=== PATIENT | female | born 1985 | race Caucasian/White ===

== ENCOUNTER 2017-12-08 09:14 | Emergency (ER) | payer BC, SELFPAY ==
[2017-12-08 09:26] VITALS: BP 105/64; PULSE 96; RESP 18; TEMP 36.5; O2SAT 98; BMI 29.0
--- NOTE | 2017-12-08 09:58 | HMH.EDUTC ---
[facility] [place] Disposition Clinical Impression: Acute bronchitis Qualifiers: Bronchitis organism: other organism Qualified Code(s): J20.8 - Acute bronchitis due to other specified organisms Disposition: Home, Self-Care Condition on Discharge: Good Instructions: Acute Bronchitis Additional Instructions: Increase fluids Tylenol as needed If any symptoms worsen or do not improve return or be seen in the ER Follow-up with Dr. Costello on Saturday sooner if needed Referrals: Jose Krueger MD [Primary Care Provider] - Time of Disposition: 10:18 Medical Decision Making Vital Signs: 12/08/17 09:26 Temperature 97.7 F Temperature Source Oral Pulse Rate [Right Brachial] 96 H Respiratory Rate 18 Blood Pressure [Right Arm] 105/64 Blood Pressure Mean [Right Arm] 77 Blood Pressure Source [Right Arm] Automatic Cuff Blood Pressure Position [Right Arm] Sitting 02 Sat by Pulse Oximetry 98 Oxygen Delivery Method Room Air Orders (Tests/Meds): ED MEDICATIONS Generic Name Dose Route Start Last Admin Trade Name Freq PRN Reason Stop Dose Admin Albuterol Sulfate 2 puffs 12/08/17 10:12 Proventil-Hfa 90mcg/Puff Inhaler IH 01/07/18 10:11 Q6HP PRN Shortness Of Breath Ferrous Sulfate 325 mg 12/09/17 09:00 Ferrous Sulfate 325mg Tablet PO 01/08/18 08:59 DAILY ELYSSA Non-Formulary Medication 1 tab 12/08/17 10:15 Vit Calc,Iron,Folic [Kpn] PO 01/07/18 10:14 QDAY ELYSSA Discontinued Medications Generic Name Dose Route Start Last Admin Trade Name Freq PRN Reason Stop Dose Admin Miscellaneous 1 unit 12/08/17 10:12 Aerochamber/Optihaler MC 12/08/17 10:13 ONCE ONE - Physician Consults Physician Consulted: christian Time: 10:14 Reason -: Pt condition Comment/Response: Talk with Dr. Lin regarding patient's complaints of shortness of breath, congestion. Dr. Lin okayed Zithromax and an albuterol inhaler. Discussed vitals. - Kian Inquiry Pt receiving controlled substance: No Kian was queried for this patient: No [facility] [place] HPI - General Stated complaint: head congestion Time Seen by Provider: 12/08/17 09:59 Mode of Arrival: Ambulatory Source of Information: Patient Limitations: currently 7 months Description of Symptoms (Recalled from Triage Doc. by RN): congestion, cough. reports she has been sick for almost 3 weeks, but has not reported fever or flu like symptoms. HEENT Symptoms (Recalled from RN notes): No Resp Symptoms (Recalled from RN notes): Yes (cough, chest congestion) Skin Symptoms (Recalled from RN notes): No MS Symptoms (Recalled from RN notes): No Functional Status (Recalled from RN notes): na - History of Present Illness Provider Complaint: 32-year-old female presents for chest congestion, cough, nasal congestion, left ear pain, and shortness of breath ?2 weeks. Patient is 7 months Associated symptoms: cough, shortness of breath, weakness Treatments prior to arrival: none - Related Data Home Medications Medication Instructions Recorded Confirmed ferrous sulfate 325 mg (65 mg 325 mg PO DAILY tab 11/25/17 iron) tablet 1 tab PO QDAY 11/25/17 vitamin,calcium,zwpuhose-gzhk-eqjft acid tablet Allergies Allergy/AdvReac Type Severity Reaction Status Date / Time diphenhydramine Allergy Unknown Verified 12/08/17 09:25 [From BRIE] - Worker's Comp Is this a Worker's Comp case?: No Is this an [facility] Worker's Comp?: No Is this a [facility] Worker's Comp?: No [facility] History - *Social History Smoking Status: Never smoker Alcohol Intake: never - Psychiatric History Expresses thoughts of harming self/others: None Suicide Plan Description: No Plan ROS Obtained: Yes All systems reviewed & no additional complaints - Constitutional Constitutional: Reports as per HPI, Reports malaise - Eyes Eyes: Reports as per HPI - ENT Ears, Nose, Mouth, and Throat: Reports as per HPI, Reports nasal con
--- NOTE | 2017-12-08 10:01 | ED_ITS ---
[facility] [place] Disposition Clinical Impression: Acute bronchitis Qualifiers: Bronchitis organism: other organism Qualified Code(s): J20.8 - Acute bronchitis due to other specified organisms Disposition: Home, Self-Care Condition on Discharge: Good Instructions: Acute Bronchitis Additional Instructions: Increase fluids Tylenol as needed If any symptoms worsen or do not improve return or be seen in the ER Follow-up with Dr. Costello on Saturday sooner if needed Referrals: Jose Krueger MD [Primary Care Provider] - Time of Disposition: 10:18 Medical Decision Making Vital Signs: 12/08/17 09:26 Temperature 97.7 F Temperature Source Oral Pulse Rate [Right Brachial] 96 H Respiratory Rate 18 Blood Pressure [Right Arm] 105/64 Blood Pressure Mean [Right Arm] 77 Blood Pressure Source [Right Arm] Automatic Cuff Blood Pressure Position [Right Arm] Sitting 02 Sat by Pulse Oximetry 98 Oxygen Delivery Method Room Air Orders (Tests/Meds): ED MEDICATIONS Generic Name Dose Route Start Last Admin Trade Name Freq PRN Reason Stop Dose Admin Albuterol Sulfate 2 puffs 12/08/17 10:12 Proventil-Hfa 90mcg/Puff Inhaler IH 01/07/18 10:11 Q6HP PRN Shortness Of Breath Ferrous Sulfate 325 mg 12/09/17 09:00 Ferrous Sulfate 325mg Tablet PO 01/08/18 08:59 DAILY ELYSSA Non-Formulary Medication 1 tab 12/08/17 10:15 Vit Calc,Iron,Folic [Kpn] PO 01/07/18 10:14 QDAY ELYSSA Discontinued Medications Generic Name Dose Route Start Last Admin Trade Name Freq PRN Reason Stop Dose Admin Miscellaneous 1 unit 12/08/17 10:12 Aerochamber/Optihaler MC 12/08/17 10:13 ONCE ONE - Physician Consults Physician Consulted: christian Time: 10:14 Reason -: Pt condition Comment/Response: Talk with Dr. Lin regarding patient's complaints of shortness of breath, congestion. Dr. Lin okayed Zithromax and an albuterol inhaler. Discussed vitals. - Kian Inquiry Pt receiving controlled substance: No Kian was queried for this patient: No [facility] [place] HPI - General Stated complaint: head congestion Time Seen by Provider: 12/08/17 09:59 Mode of Arrival: Ambulatory Source of Information: Patient Limitations: currently 7 months Description of Symptoms (Recalled from Triage Doc. by RN): congestion, cough. reports she has been sick for almost 3 weeks, but has not reported fever or flu like symptoms. HEENT Symptoms (Recalled from RN notes): No Resp Symptoms (Recalled from RN notes): Yes (cough, chest congestion) Skin Symptoms (Recalled from RN notes): No MS Symptoms (Recalled from RN notes): No Functional Status (Recalled from RN notes): na - History of Present Illness Provider Complaint: 32-year-old female presents for chest congestion, cough, nasal congestion, left ear pain, and shortness of breath ?2 weeks. Patient is 7 months Associated symptoms: cough, shortness of breath, weakness Treatments prior to arrival: none - Related Data Home Medications Medication Instructions Recorded Confirmed ferrous sulfate 325 mg (65 mg 325 mg PO DAILY tab 11/25/17 iron) tablet 1 tab PO QDAY 11/25/17 vitamin,calcium,oqeafyll-nfgv-bspwz acid tablet
== END 2017-12-08 10:37 | disposition home or self-care (01) ==
PROVIDERS: Emergency Provider Nurse Practitioner Family; Family Provider Internal Medicine Adolescent Medicine; PCP Internal Medicine Adolescent Medicine
DX: J20.8 Acute bronchitis due to other specified organisms (principal); Z3A.28 28 weeks gestation of pregnancy
CPT/HCPCS: 99201

== ENCOUNTER → 2017-12-18 19:00 | Outpatient (CLI) | payer BC, SELFPAY | PROVIDERS: PCP Nurse Practitioner Obstetrics & Gynecology; Visit Provider Nurse Practitioner Obstetrics & Gynecology | DX: Z34.90 Encounter for supervision of normal pregnancy, unspecified, unspecified trimester (principal) | CPT/HCPCS: 86403 ==

== ENCOUNTER 2018-01-01 22:07 | Inpatient (IN) | payer BC, SELFPAY ==
--- NOTE | 2018-01-01 | US_ITS ---
US OB biophysical profile, US OB follow up, US SD Ratio umbilcal artery: Indication: Decreased heart rate ORDERING PHYSICIAN: Bob Durán MD PATIENT AGE: 32 years FINDINGS: The following parameters are obtained: Average ultrasound age is 38 weeks 2 days. Estimated due date by ultrasound is 01/13/2018. There has been adequate progression compared to previous ultrasound of 08/28/2017. Estimated weight is 3495 g. This is 79th percentile BPD: 37 weeks 3 days OFD: OFD HC: 39 weeks 0 days AC: 39 weeks 0 days FL: 37 weeks 4 days heart rate: 97 bpm. HC/AC: 0.96 Cephalic index: 76% FL/BPD: 80% FL/AC: 21% Amniotic fluid index: 9 cm, lower limits of normal Qualitative AFV: 2 breathing movements: 2 Gross body movements: 2 Tone: 2 Biophysical profile score: 8/8 Doppler evaluation of the umbilical artery: SD ratio: 2.0 Resistive index: 0.51 No obvious anomalies evident. There is a nuchal cord. The umbilical cord is around the fetus neck. Placenta: Anterior and grade 2 IMPRESSION: Live intrauterine gestation at 38 weeks 2 days which is in cephalic presentation with adequate progression. All parameters correlate. heart rate is 97 bpm. There is a nuchal cord. movement and respiratory motion noted. Biophysical profile is 8 of 8. Unremarkable Doppler evaluation of the umbilical artery
[2018-01-01 21:40] VITALS: BMI 28.3
[2018-01-01 21:49] LABS: Basophils % 0.1 % (0.1-2.0); Eosinophils # 0.1 K/mm3 (0.0-0.4); Eosinophils % 0.9 % (0.1-12.0); Hematocrit 35.6 % (37.0-47.0); Hemoglobin 11.5 g/dL (12.2-16.2); Lymphocytes # 1.6 K/mm3 (0.7-4.5); Lymphocytes % 17.6 K/mm3 (10-50); Mean Corpuscular HGB Conc 32.4 g/dL (31.8-35.4); Mean Corpuscular Hemoglobin 27.3 pg (27.0-31.2); Mean Corpuscular Volume 84.2 fl (81-99); Mean Platelet Volume 7.3 fl (7.4-10.4); Monocytes # 0.6 K/mm3 (0.1-1.0); Monocytes % 6.1 % (1.7-9.3); Neutrophils % 75.3 % (37.0-80.0); Platelet Count 383 K/mm3 (142-424); Red Blood Count 4.23 M/mm3 (4.20-5.40); Red Cell Distribution Width 13.8 % (11.5-17.5); White Blood Count 9.3 K/mm3 (4.8-10.8)
[2018-01-01 21:51] LABS: Blood Urea Nitrogen 6 mg/dL (7-18); Carbon Dioxide 24 mmol/L (21.0-32.0); Creatinine Clearance Estimated 248 mL/min (0-300); Creatinine,Serum 0.43 mg/dL (0.55-1.02); Estimated Glomerular Filt Rate 169 ml/min (>60); GFR (African American) 205 ML/MIN (>60); Glucose 96 mg/dL (74-106); Potassium 3.4 mmoL/L (3.5-5.1)
[2018-01-01 22:02] LABS: Anion Gap 4.4 mEq/L (5-15); Chloride 103 mmol/L (98-107); Sodium 128 mmol/L (136-145)
--- NOTE | 2018-01-01 22:17 | HMH.ACPN2 ---
Internal Medicine - PN: Subj *Date: 01/01/18 *Time: 22:17 Interval history: She is a 32-year-old 3 para 2 who is 37 and 6 weeks gestational age. She complains of decreased movement. She has a low baseline on her heart rate tracing. Baby's heart rate was right around 100. Ultrasound showed a biophysical profile of 8 out of 8 with good growth. The fluid is marginal with an amniotic fluid index of 8. Since she will be 38 weeks tomorrow we will go ahead and admit her and induce her labor in the morning. I suspect we may have mild heart block. Her cervix is 2 cm 75% -1 Exam Vital signs and Labs for Last 24 Hours: Laboratory Results - last 24 hr 01/01/18 21:30: WBC 9.3, RBC 4.23, Hgb 11.5 L, Hct 35.6 L, MCV 84.2, MCH 27.3, MCHC 32.4, RDW 13.8, Plt Count 383, MPV 7.3 L, Neut % (Auto) 75.3, Lymph % (Auto) 17.6, Calloway % (Auto) 6.1, Eos % (Auto) 0.9, Baso % (Auto) 0.1, Neut # (Auto) 7.0, Lymph # (Auto) 1.6, Calloway # (Auto) 0.6, Eos # (Auto) 0.1, Baso # (Auto) 0.0 01/01/18 21:30: Sodium 128 L, Potassium 3.4 L, Chloride 103, Carbon Dioxide 24, Anion Gap 4.4 L, BUN 6 L, Creatinine 0.43 L, Estimated Creat Clear 248, Estimated GFR 169, Est GFR ( Amer) 205, Glucose 96 I & O for Last 24 hours: Intake & Output 12/30/17 12/31/17 01/01/18 01/02/18 11:59 11:59 11:59 11:59 Weight 186 lb - Constitutional no acute distress Assessment and Plan (1) Abnormal heart rate complicating Current visit: Yes Status: Acute Category: Medical Code(s): O36.8390 - Maternal care for abnormalities of the heart rate or rhythm, unspecified trimester, not applicable or unspecified (2) Oligohydramnios antepartum Current visit: Yes Status: Acute Category: Medical Code(s): O41.00X0 - Oligohydramnios, unspecified trimester, not applicable or unspecified - Assessment and plan all Dx Assessment and Plan for all problems:: We will go ahead and admit her overnight and since she is 38 weeks we will start labor in the morning.
[2018-01-01 23:29] VITALS: BP 112/72; PULSE 78; RESP 17; TEMP 36.7; O2SAT 94; BMI 29.1
--- NOTE | 2018-01-02 08:12 | HMH.LABNOT ---
Labor Note - Subjective: Date: 01/02/18 Time: 08:12 regular contraction Comment:: We have started oxytocin this morning and she is 3 cm 75% -2. I have ruptured her membranes and there was clear fluid. The nonstress test is reactive with a heart rate around 100. - Objective: NST:: Reactive Contractions:: every 2-3 minutes Cervical Dilation:: 3 Effacement:: 75% Station: -2 Membranes: articially ruptured - Fetus: Monitoring?: Yes monitoring type:: Internal Comment:: I inserted an IUPC and scalp clip. - Assessment: Labor progressing?: Yes Cephalopelvic disproportion?: No Patient Problems: All Active Problems Acute bronchitis (Acute) Abnormal heart rate complicating (Acute) Oligohydramnios antepartum (Acute) (Acute) - Plan: Anesthesia for epidural?: No Continue to labor down?: Yes Plan for ?: No Continue to monitor?: Yes Start pushing?: No
--- NOTE | 2018-01-02 10:04 | HMH.LABNOT ---
Labor Note - Subjective: Date: 01/02/18 Time: 10:04 regular contraction - Objective: NST:: Reactive Contractions:: every 2-3 minutes Cervical Dilation:: 6 Effacement:: 100% Station: 0 Membranes: articially ruptured - Fetus: Monitoring?: Yes monitoring type:: Internal Comment:: I changed out her IUPC. - Assessment: Labor progressing?: Yes Cephalopelvic disproportion?: No Patient Problems: All Active Problems Acute bronchitis (Acute) Abnormal heart rate complicating (Acute) Oligohydramnios antepartum (Acute) (Acute) - Plan: Anesthesia for epidural?: Yes Continue to labor down?: Yes Plan for ?: No Continue to monitor?: Yes Start pushing?: No
--- NOTE | 2018-01-02 10:05 | P.PN_ITS ---
[facility] Anesthesia Checklist - Structural Data Admitted From: Inpatient Planned Operative Procedure/s: labor epidural Consent for Planned Operative Procedure(s) Verified: Yes - Airway Assessment C-Spine Mobility Assessed: Yes TMJ Mobility Assessed: Yes Dentition: Good Dentition - Neurological Assessment Level of Consciousness: Awake, Alert - Anesthesia Plan Anesthesia Risk discussed: Yes Anesthesia Plan: Verified ASA Class: II Anesthesia Type: Epidural [facility] Anesthesia HX I have reviewed the patient's past medical history: Yes Laterality Cases: Bilateral: Tonsillectomy Other Surgeries: Yes: Appendectomy, Amputation: No Fractures: No Comment: vag del x 2 w epidurals *Family Hx:: No significant family history
--- NOTE | 2018-01-02 12:19 | HMH.LABNOT ---
Labor Note - Subjective: Date: 01/02/18 Time: 12:20 regular contraction Comment:: She is fully dilated so we will go ahead and start pushing. - Objective: NST:: Reactive Contractions:: every 2-3 minutes Cervical Dilation:: 9-10 Effacement:: 100% Station: +1 Membranes: articially ruptured - Fetus: Monitoring?: Yes monitoring type:: Internal - Assessment: Labor progressing?: Yes Cephalopelvic disproportion?: No Patient Problems: All Active Problems Acute bronchitis (Acute) Abnormal heart rate complicating (Acute) Oligohydramnios antepartum (Acute) (Acute) - Plan: Anesthesia for epidural?: Yes Continue to labor down?: Yes Plan for ?: No Continue to monitor?: Yes Start pushing?: Yes Comment:: She is fully dilated so we will go ahead and start pushing.
--- NOTE | 2018-01-02 12:54 | P.PCN_ITS ---
- Delivery Note Delivery Date:: 01/02/18 Delivery Time:: 12:36 Anesthesia Type: Epidural Was labor medically induced?: Yes Induction method: per pitocin protocol Gestational age (weeks): 38 Infant delivered prior to 39 weeks?: Yes Justification for early elective delivery:: Anomaly Gender: Male at 1 minute: 9 at 5 minutes: 9 AF:: Clear fluid LAC or MLE?: LAC (Second-degree) Delivery Procedure:: She is a 32-year-old 3 para 2 who is 38 weeks gestational age. She was seen on the night prior to delivery and was having decreased movement. It was noted that the baby had a low baseline heart rate in the 90s-100 we did an ultrasound that showed mild oligohydramnios with an amniotic fluid index of 8. The growth is normal. Biophysical profile was normal. SD ratio was normal. Since the baseline was low and it was concerning that the baby had decreased movement we elected to induce her labor at 38 weeks. She was started on IV oxytocin and had her membranes ruptured. Under labor epidural she progressed to full dilation and delivered with the assistance of a vacuum liveborn male child at 12:36 PM in the afternoon of every 2017. The baby had bradycardia into the 70s and 80s and as result of that I elected to place a vacuum in the direct OA position at station +4. Using one gentle pull I was able to easily deliver the head over an intact perineum. On deliver the head there was a loose nuchal cord which was easily reduced. This was followed by the anterior shoulder and the rest of the infant's body atraumatically. The baby was vigorous and cried and I allowed the cord to continue to pulsate for approximately 1 minute. The cord was then doubly clamped and cut. The was then handed off to Dr. Johnson who assigned Apgars of 9 at 1 minute and 9 at 5 minutes. We then obtained cord blood as well as cord pH. The pH is currently pending. Using gentle traction on the cord and countertraction on the fundus I was able to easily deliver the placenta intact at 1239. He had a normal three-vessel cord. She had a second-degree perineal laceration was repaired with 3-0 Vicryl Rapide suture to the superficial tissues and 2-0 Vicryl suture to the deep tissues. She has O Rh- blood, she is rubella immune and was group B Streptococcus negative. She plans to breast-feed. Her [place] leverman is Dr. Johnson. Estimated blood loss was approximately 400 cc. Placental Delivery Description: Spontaneous
[2018-01-02 14:31] LABS: Cord Blood PH 7.28 (7.35-7.45)
[2018-01-02 22:24] VITALS: BP 105/66; PULSE 78; RESP 18
[2018-01-03 07:04] LABS: Hematocrit 34.6 % (37.0-47.0); Hemoglobin 11.2 g/dL (12.2-16.2)
--- NOTE | 2018-01-03 08:07 | HMH.ACPN2 ---
Internal Medicine - PN: Subj *Date: 01/03/18 *Time: 08:07 Interval history: She is doing very well this morning. She is eating and drinking and ambulating. She is breast-feeding. Her lochia is normal. Exam Vital signs and Labs for Last 24 Hours: Temp Pulse Resp BP Pulse Ox 98.1 F 78 18 105/66 94 L 01/01/18 23:29 01/02/18 22:24 01/02/18 22:24 01/02/18 22:24 01/01/18 23:29 Laboratory Results - last 24 hr 01/02/18 12:30: Specimen Source Cancelled, O2 % Cancelled, ABG pH Cancelled, ABG pCO2 Cancelled, ABG pO2 Cancelled, ABG HCO3 Cancelled, ABG Total CO2 Cancelled, ABG O2 Saturation Cancelled, ABG Base Excess Cancelled, Nghia Test Cancelled, Vent Rate Cancelled, Tidal Volume Cancelled, PEEP Cancelled 01/02/18 12:30: Cord ABG pH 7.28 L 01/03/18 06:30: Hgb 11.2 L, Hct 34.6 L I & O for Last 24 hours: Intake & Output 12/31/17 01/01/18 01/02/18 01/03/18 11:59 11:59 11:59 11:59 Weight 186 lb 0.957 oz - Constitutional no acute distress Assessment and Plan (1) Abnormal heart rate complicating Current visit: Yes Status: Acute Category: Medical Code(s): O36.8390 - Maternal care for abnormalities of the heart rate or rhythm, unspecified trimester, not applicable or unspecified (2) Oligohydramnios antepartum Current visit: Yes Status: Acute Category: Medical Code(s): O41.00X0 - Oligohydramnios, unspecified trimester, not applicable or unspecified - Assessment and plan all Dx Assessment and Plan for all problems:: She is doing very well this morning. Her baby is doing well. We will plan to send her home tomorrow.
--- NOTE | 2018-01-04 09:48 | HMH.DCSUM ---
General - General Admission date: 01/01/18 Discharge date: 01/04/18 HPI HPI: She is a 32-year-old 3 para 2 who had persistent bradycardia at 38 weeks. The baby had a heart rate of 90-100. An ultrasound showed a normally formed fetus with good biophysical profile. The fluid was slightly low at 8 the baby had good breathing movements and good SD ratio. Given the fact that the heart rate remained persistently low, we elected to go ahead and deliver her. Objective Vital signs: Temp Pulse Resp BP Pulse Ox 98.1 F 78 18 105/66 94 L 01/01/18 23:29 01/02/18 22:24 01/02/18 22:24 01/02/18 22:24 01/01/18 23:29 no acute distress Hospital Course Hospital Course: She was observed overnight and then started on IV oxytocin. She had her membranes ruptured and under labor epidural progressed to full dilation. She delivered spontaneously a liveborn male child at 12:36 PM in the afternoon of January 02, 2018. The baby weighed 8 lbs. 8 oz. and had Apgars of 9 at 1 minute and 9 at 5 minutes. She has done well and has remained afebrile throughout her hospitalization. She is eating and drinking and ambulating. She is breast-feeding. She has O Rh- blood and receive RhoGam. She was rubella immune and group B streptococcus negative. She is breast-feeding. She is discharged home to follow-up with me in approximately 2 weeks time. She will continue with her vitamins and iron. She will take yxux-ele-kfmltfz analgesics. Results Labs on day of discharge: Labs from last 24 hours 01/03/18 16:12 Rhogam Infusion Rhogam release DS: Diagnosis - Discharge Diagnosis (1) Abnormal heart rate complicating Status: Acute (2) Oligohydramnios antepartum Status: Acute Discharge Plan - Patient Discharge Instructions ACTIVITY: Continue current activity, No heavy lifting DIET: continue same diet - Follow up Plan Disposition: Home, Self-Fdc Medications: Home Medications Medication Instructions Recorded Confirmed Type ferrous sulfate 325 mg (65 mg 325 mg PO DAILY tab 11/25/17 01/02/18 History iron) tablet 1 tab PO DAILY 11/25/17 01/02/18 History vitamin,calcium,drutkcuk-xtnc-lqhrk acid tablet Prescriptions/Medication Reconciliation: Continue vitamin,calcium,osduhbfi-licf-jnfxw acid tablet 1 tab PO DAILY ferrous sulfate 325 mg (65 mg iron) tablet 325 mg PO DAILY tab
--- NOTE | 2018-01-04 09:51 | P.DS_ITS ---
General - General Admission date: 01/01/18 Discharge date: 01/04/18 HPI HPI: She is a 32-year-old 3 para 2 who had persistent bradycardia at 38 weeks. The baby had a heart rate of 90-100. An ultrasound showed a normally formed fetus with good biophysical profile. The fluid was slightly low at 8 the baby had good breathing movements and good SD ratio. Given the fact that the heart rate remained persistently low, we elected to go ahead and deliver her. Objective Vital signs: Temp Pulse Resp BP Pulse Ox 98.1 F 78 18 105/66 94 L 01/01/18 23:29 01/02/18 22:24 01/02/18 22:24 01/02/18 22:24 01/01/18 23:29 no acute distress Hospital Course Hospital Course: She was observed overnight and then started on IV oxytocin. She had her membranes ruptured and under labor epidural progressed to full dilation. She delivered spontaneously a liveborn male child at 12:36 PM in the afternoon of January 02, 2018. The baby weighed 8 lbs. 8 oz. and had Apgars of 9 at 1 minute and 9 at 5 minutes. She has done well and has remained afebrile throughout her hospitalization. She is eating and drinking and ambulating. She is breast- feeding. She has O Rh- blood and receive RhoGam. She was rubella immune and group B streptococcus negative. She is breast-feeding. She is discharged home to follow-up with me in approximately 2 weeks time. She will continue with her vitamins and iron. She will take over-the- counter analgesics. Results Labs on day of discharge: Labs from last 24 hours 01/03/18 16:12 Rhogam Infusion Rhogam release DS: Diagnosis - Discharge Diagnosis (1) Abnormal heart rate complicating Status: Acute (2) Oligohydramnios antepartum Status: Acute Discharge Plan - Patient Discharge Instructions ACTIVITY: Continue current activity, No heavy lifting DIET: continue same diet - Follow up Plan Disposition: Home, Self-Snf Medications: Home Medications Medication Instructions Recorded Confirmed Type ferrous sulfate 325 mg (65 mg 325 mg PO DAILY tab 11/25/17 01/02/18 History iron) tablet 1 tab PO DAILY 11/25/17 01/02/18 History vitamin,calcium,iyfqnuqx-wwov-slgdn acid tablet Prescriptions/Medication Reconciliation: Continue vitamin,calcium,lbbtsple-sfmv-ozodw acid tablet 1 tab PO DAILY ferrous sulfate 325 mg (65 mg iron) tablet 325 mg PO DAILY tab
== END 2018-01-04 10:30 | disposition home or self-care (01) | DRG 775 ==
LOC: OBOUT 22:09
PROVIDERS: Admitting Provider Nurse Practitioner Obstetrics & Gynecology; Family Provider Nurse Anesthetist, Certified Registered; PCP Internal Medicine Adolescent Medicine; Visit Provider Nurse Practitioner Obstetrics & Gynecology
DX: O41.03X0 Oligohydramnios, third trimester, not applicable or unspecified (principal); O36.8130 Decreased fetal movements, third trimester, not applicable or unspecified; O70.1 Second degree perineal laceration during delivery; Z3A.38 38 weeks gestation of pregnancy; Z37.0 Single live birth; O69.81X0 Labor and delivery complicated by cord around neck, without compression, not applicable or unspecified
CPT/HCPCS: 59409; 59025; 76816; 76819; 76820; 80048; 82800; 85014; 85018; 85025; 85461; 86850; 94761; C1758; J2790

== ENCOUNTER → 2019-01-09 10:22 | Outpatient (CLI) | payer BC, SELFPAY ==
--- NOTE | 2019-01-09 10:31 | US_ITS ---
US soft tissue head and neck CLINICAL INDICATION: Left neck mass ITS.REASON: NECK MASS ORDERING PHYSICIAN: Kalee Dalal PATIENT AGE: 33 years Comparison: None FINDINGS: Ultrasound evaluation performed of the nonthyroid soft tissues of the neck. The parotid and submandibular glands have an unremarkable appearance. No dominant adenopathy is evident. Please see thyroid ultrasound for thyroid description. IMPRESSION: Negative nonthyroidal soft tissue examination of the left neck. There are bilateral thyroid nodules which are more prominent on the left. Please see thyroid ultrasound report for further description
--- NOTE | 2019-01-09 10:31 | US_ITS ---
US thyroid HISTORY: Left neck mass ITS.REASON: NECK MASS ORDERING PHYSICIAN: Kalee Dalal PATIENT AGE: 33 years Comparison: None FINDINGS: The right lobe of the thyroid gland is 4.2 x 1.0 x 2.2 cm. There is barely homogeneous echogenicity. A isoechoic nodule is present in the upper pole at 5 mm anteriorly. An additional upper pole isoechoic nodule is noted at 6 mm. A small cyst is present in the lower pole at 2 mm. The left lobe is 5.7 x 2.6 x 3.6 cm. There is a solid appearing 2 x 1.4 x 1.2 cm nodule in the upper pole which is heterogeneous iso to hypoechoic. This is fairly well-circumscribed. There is a large 4.3 x 2 x 2.8 cm solid appearing heterogeneous nodule in the mid polar region with areas of isoechogenicity and hypoechogenicity. This also is fairly well-circumscribed. There is a 1.1 x 0.8 x 0.9 cm solid appearing isoechoic nodule in the lower pole. The 2 larger nodules are hypervascular. IMPRESSION: 1. There are 3 solid nodules of the left lobe of the thyroid gland. The 2 larger nodules are hypervascular measuring 2 and 4 cm. Fine needle aspiration suggested of the 2 dominant solid nodules on the left.
== END ==
PROVIDERS: PCP Nurse Practitioner Family; Visit Provider Nurse Practitioner Family
DX: R22.1 Localized swelling, mass and lump, neck (principal)
CPT/HCPCS: 76536

== ENCOUNTER → 2019-01-28 12:23 | Outpatient (CLI) | payer BC, SELFPAY ==
--- NOTE | 2019-01-28 12:37 | US_ITS ---
FNA w guidance HISTORY: Dominant left thyroid nodule ITS.REASON: 2 THYROID NODULES LT ORDERING PHYSICIAN: Jose Krueger MD PATIENT AGE: 33 years COMPARISON: 01/09/2019 TECHNIQUE: Following obtaining informed consent, using aseptic technique and local anesthesia with buffered lidocaine, fine-needle aspiration was performed of the dominant nodule in the lower pole of the left lobe of the thyroid gland, the nodule of interest using sonographic guidance. 3 passes were made into the nodule with a 25-gauge needle. Specimen was given to cytology. The patient tolerated the procedure well without evidence of immediate complications and left the ultrasound suite in stable condition. CYTOLOGY:Atypical follicular lesion of undetermined significance IMPRESSION: Uneventful ultrasound guided fine needle aspiration of left thyroid nodule showing atypical follicular lesion of undetermined significance
== END ==
PROVIDERS: PCP Internal Medicine Adolescent Medicine; Visit Provider Internal Medicine Adolescent Medicine
DX: E04.1 Nontoxic single thyroid nodule (principal)
CPT/HCPCS: 10005

== ENCOUNTER → 2019-02-26 13:02 | Outpatient (CLI) | payer BC, SELFPAY ==
--- NOTE | 2019-02-26 13:06 | FL_ITS ---
EXAM: Barium swallow/esophagram. INDICATION: Noah been, fever, difficulty swallowing following thyroid surgery. ITS.REASON: choking/fever/post thyroid surgery ORDERING PHYSICIAN: Sylvester Gamble MD PATIENT AGE: 33 years COMPARISON: None TECHNIQUE: In the upright position the patient was observed to swallow barium in both the AP and lateral view. The cervical esophagus was examined under fluoroscopy with images obtained. The patient was then placed prone in the right anterior oblique position and was observed to swallow barium with Valsalva technique . FLUOROSCOPY TIME: 2 minutes and 32 seconds FINDINGS: EXAM is somewhat limited due to patient's inability to swallow and appropriate amount of contrast. Initially a small amount of Gastrografin was given with no evidence of extravasation. This was followed with barium. The patient was unable to swallow an adequate amount of barium however, there is no evidence of esophageal extrinsic mass or deviation. No extravasation apparent. The mid and distal aspect of the esophagus have an unremarkable appearance. IMPRESSION: Essentially negative limited barium swallow
== END ==
PROVIDERS: PCP Internal Medicine Adolescent Medicine; Visit Provider Otolaryngology
DX: R07.0 Pain in throat (principal); R13.10 Dysphagia, unspecified; S16.1XXA Strain of muscle, fascia and tendon at neck level, initial encounter; Z98.890 Other specified postprocedural states
CPT/HCPCS: 74220

== ENCOUNTER → 2019-02-26 13:44 | Outpatient (CLI) | payer BC, SELFPAY ==
[2019-02-26 15:20] LABS: Free T4 (Free Thyroxine) 1.09 ng/dl (0.76-1.46); Thyroid Stimulating Hormone 0.31 uIU/ml (0.358-3.740)
[2019-02-28 18:04] LABS: Calcium, Ionized 5.3 mg/dL (4.5-5.6)
== END ==
PROVIDERS: Visit Provider Otolaryngology
DX: Z98.890 Other specified postprocedural states (principal); R07.0 Pain in throat
CPT/HCPCS: 36415; 82330; 84439; 84443

== ENCOUNTER → 2019-05-11 13:23 | Outpatient (CLI) | payer BC, SELFPAY ==
[2019-05-11 17:38] LABS: Free T4 (Free Thyroxine) 1.06 ng/dl (0.76-1.46); Thyroid Stimulating Hormone 0.32 uIU/ml (0.358-3.740)
== END ==
PROVIDERS: PCP Internal Medicine Adolescent Medicine; Visit Provider Otolaryngology
DX: Z09 Encounter for follow-up examination after completed treatment for conditions other than malignant neoplasm (principal)
CPT/HCPCS: 36415; 84439; 84443

== ENCOUNTER → 2019-10-20 15:32 | Outpatient (POV) | payer BC, SELFPAY | PROVIDERS: Visit Provider Dermatology | DX: Z00.00 Encounter for general adult medical examination without abnormal findings (principal) ==

== ENCOUNTER → 2020-11-29 11:09 | Outpatient (CLI) | payer BC, SELFPAY ==
[2020-11-30 09:14] LABS: Covid-19 Nasal PCR Sendout P&C NEGATIVE
== END ==
PROVIDERS: PCP Internal Medicine Adolescent Medicine; Visit Provider Nurse Practitioner Family
DX: Z11.52 Encounter for screening for COVID-19 (principal)
CPT/HCPCS: U0004

== ENCOUNTER → 2021-03-28 15:59 | Outpatient (POV) | payer BC, SELFPAY | PROVIDERS: Visit Provider Dermatology | DX: Z00.00 Encounter for general adult medical examination without abnormal findings (principal) ==

== ENCOUNTER → 2021-05-23 15:42 | Outpatient (CLI) | payer BC, SELFPAY ==
[2021-05-23 16:20] LABS: Basophils # 0.1 K/mm3 (0-0.2); Basophils % 0.7 % (0.1-2.0); Eosinophils # 0.1 K/mm3 (0.0-0.4); Eosinophils % 0.7 % (0.1-12.0); Hematocrit 36.2 % (37.0-47.0); Hemoglobin 12.1 g/dL (12.2-16.2); Lymphocytes # 1.9 K/mm3 (0.7-4.5); Lymphocytes % 19.3 % (10-50); Mean Corpuscular HGB Conc 33.4 g/dL (31.8-35.4); Mean Corpuscular Hemoglobin 27.6 pg (27.0-31.2); Mean Corpuscular Volume 82.7 fl (81-99); Monocytes # 0.3 K/mm3 (0.1-1.0); Monocytes % 3.4 % (1.7-9.3); Neutrophils # 7.6 K/mm3 (1.8-7.8); Platelet Count 387 K/mm3 (142-424); Red Blood Count 4.38 M/mm3 (4.20-5.40); Red Cell Distribution Width 13.9 % (11.5-17.5)
[2021-05-23 17:03] LABS: Chloride 104 mmol/L (98-107); Potassium 4.5 mmoL/L (3.5-5.1); Sodium 140 mmol/L (136-145)
[2021-05-23 17:05] LABS: Blood Urea Nitrogen 13 mg/dl (7-17); Estimated Glomerular Filt Rate 95 ml/min (>60); GFR (African American) 115 ML/MIN (>60)
[2021-05-23 17:06] LABS: Alanine Aminotransferase 33 U/L (12-78); Albumin Level 4.5 g/dl (3.5-5.0); Albumin/Globulin Ratio 1.7 (1.1-1.8); Alkaline Phosphatase 69 U/L (38-126); Anion Gap 12.5 mEq/L (5-15); Aspartate Amino Transferase 26 U/L (14-36); Bilirubin,Total 0.3 mg/dl (0.2-1.3); Calcium 9.5 mg/dl (8.4-10.2); Carbon Dioxide 28 mmol/L (22.0-30.0); Globulin 2.6 g/dL (1.3-3.2); Glucose 86 mg/dl (74-100); Total Protein,Serum 7.1 g/dl (6.3-8.2)
[2021-05-23 17:22] LABS: Free Thyroxine Index 3.1 ug/dL (5.93-13.13); T4 (Thyroxine) 9.9 ug/dl (5.53-11.0); Triiodothryronine (T3) Uptake 31 % (23.5-40.5)
[2021-05-23 17:36] LABS: Thyroid Stimulating Hormone 0.36 uIU/mL (0.465-4.68)
== END ==
PROVIDERS: Visit Provider Internal Medicine Adolescent Medicine
DX: E89.0 Postprocedural hypothyroidism (principal)
CPT/HCPCS: 36415; 80053; 84436; 84443; 84479; 85025

== ENCOUNTER 2021-08-16 17:45 | Emergency (ER) | payer BC, SELFPAY ==
[2021-08-16 17:56] VITALS: BP 137/87; PULSE 105; RESP 20; TEMP 37.2; O2SAT 98; BMI 27.2
--- NOTE | 2021-08-16 18:55 | HMH.EDUTC ---
[facility] Disposition Clinical Impression: Exposure to COVID-19 virus Acute bronchitis Qualifiers: Bronchitis organism: unspecified organism Qualified Code(s): J20.9 - Acute bronchitis, unspecified Disposition: Home, Self-Care Condition on Discharge: Good Instructions: DI for Acute Bronchitis, DI for COVID-19 (Suspected or Confirmed ), Preventing the Spread of Coronavirus Discharge Instructions Additional Instructions: Drink plenty of fluids. Take tylenol or ibuprofen for pain or fever. Take the medications as directed. Follow up with your regular doctor. GO TO THE ER FOR ANY WORSENING SYMPTOMS Quarantine until you know the results of your covid-19 test. If it is positive, the health department should call you and give you further instructions about your length of Quarantine and other things. Notify your school or workplace of your results and follow their instructions regarding return to work/school. The cough medication (promethazine dm) will make you drowsy, so don't drive or operate heavy machinery after taking it. Prescriptions: Promethazine/Dextromethorphan [Promethazine-Dm Syrup] 5 ml PO Q6HP PRN #240 ml PRN Reason: Cough Transmission Status: Received by [facility] # methylPREDNISolone [Medrol] 4 mg PO DIRECTED 6 Days #21 packet Transmission Status: Received by [facility] # Azithromycin [Z-Edi 250mg Tab*] 250 mg PO UD DOSE PK #6 tab Transmission Status: Received by [facility] # Referrals: Jose Krueger MD [Primary Care Provider] - Forms: Work/School Release Time of Disposition: 18:58 Medical Decision Making - Medical Records Medical records reviewed: No: I reviewed the patient's medical records. - Kian Inquiry Pt receiving controlled substance: No Vital Signs: 08/16/21 17:56 08/16/21 19:23 Temperature 98.9 F 98 F Temperature Source Oral Oral Pulse Rate 78 Pulse Rate [Radial] 105 H Respiratory Rate 20 15 Blood Pressure 124/74 Blood Pressure [Right Arm] 137/87 Blood Pressure Mean [Right Arm] 103 Blood Pressure Position Sitting Blood Pressure Position [Right Arm] Sitting 02 Sat by Pulse Oximetry 98 Oxygen Delivery Method Room Air Room Air - Lab Data Lab results reviewed: Yes: I reviewed the patient's lab results. Lab Results 08/16/21 18:32: Strep Scn Rapid Clinic Negative 08/16/21 19:02: Chlamy pneumoniae PCR Not detected, Adenovirus (PCR) Not detected, B. pertussis DNA (PCR) Not detected, Coronavirus OC43 (PCR) Not detected, Coronavirus HKU1 (PCR) Not detected, Coronavirus 229E (PCR) Not detected, SARS-CoV-2 (PCR) Not detected, Coronavirus NL63 (PCR) Not detected, Human Metapneumovir PCR Not detected, Influenza A (H1) PCR Not detected, Influ A (H1N1/09) PCR Not detected, Influenza A (H3) PCR Not detected, Influenza Type A (PCR) Not detected, Influenza Type B (PCR) Not detected, M. pneumoniae (PCR) Not detected, Parainfluenza 1 (PCR) Not detected, Parainfluenza 2 (PCR) Not detected, Parainfluenza 3 (PCR) Not detected, Parainfluenza 4 (PCR) Not detected, RSV (PCR) Not detected, Entero/Rhino (PCR) Not detected Orders (Tests/Meds): ORDERS Category Date Time Status Strep Screen Confirmation Stat Micro 08/16/21 18:32 Received [facility] HPI - General Stated complaint: cough,and Ears Time Seen by Provider: 08/16/21 18:30 Mode of Arrival: Ambulatory Source of Information: Patient Limitations: No Limitations Description of Symptoms (Recalled from Triage Doc. by RN): cough, congestion, sinus and divine ear pain x 3 days HEENT Symptoms (Recalled from RN notes): No Resp Symptoms (Recalled from RN notes): Yes Skin Symptoms (Recalled from RN notes): No MS Symptoms (Recalled from RN notes): No Functional Status (Recalled from RN notes): na - History of Present Illness Provider Complaint: She states that she has been sick for the past 4 days. 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 But, she m[place]overn
[2021-08-16 19:01] LABS: UTC Strep Screen (Rapid) Negative (Negative)
[2021-08-16 19:13] LABS: Adenovirus,PCR Not Detected (NotDetected); Bordetella Pertussis Not Detected (NotDetected); Chlamydophila Pneumoniae, PCR Not Detected (NotDetected); Coronavirus 19, PCR Not Detected (NotDetected); Coronavirus 229E Not Detected (NotDetected); Coronavirus NL63 Not Detected (NotDetected); Coronavirus OC43 Not Detected (NotDetected); Coronovirus HKU1,PCR Not Detected (NotDetected); Human Metapneumovirus Not Detected (NotDetected); Influenza A, PCR Not Detected (NotDetected); Influenza AH1, 2009 Not Detected (NotDetected); Influenza AH1, PCR Not Detected (NotDetected); Influenza AH3,PCR Not Detected (NotDetected); Influenza B, PCR Not Detected (NotDetected); Mycoplasma Pneumoniae, PCR Not Detected (NotDetected); Parainfluenza 1, PCR Not Detected (NotDetected); Parainfluenza 2, PCR Not Detected (NotDetected); Parainfluenza 3, PCR Not Detected (NotDetected); Parainfluenza 4, PCR Not Detected (NotDetected); Respiratory Syncytial Virus Not Detected (NotDetected); Rhinovirus/Enterovirus Not Detected (NotDetected)
[2021-08-16 19:23] VITALS: BP 124/74; PULSE 78; RESP 15; TEMP 36.6; O2SAT 98
== END 2021-08-16 19:25 | disposition home or self-care (01) ==
PROVIDERS: Emergency Provider Nurse Practitioner Family; PCP Internal Medicine Adolescent Medicine
DX: J20.9 Acute bronchitis, unspecified (principal); Z20.822 Contact with and (suspected) exposure to COVID-19; F41.8 Other specified anxiety disorders
CPT/HCPCS: 87581; 87632; 87798; 87880; 99202; C9803; G0463; U0003; U0005

== ENCOUNTER → 2021-08-24 15:14 | Outpatient (CLI) | payer BC, SELFPAY ==
[2021-08-24 17:05] LABS: Thyroid Stimulating Hormone 0.67 uIU/mL (0.465-4.68)
== END ==
PROVIDERS: Visit Provider Internal Medicine Adolescent Medicine
DX: E89.0 Postprocedural hypothyroidism (principal)
CPT/HCPCS: 36415; 84443

== ENCOUNTER 2022-01-20 17:45 | Emergency (ER) | payer BC, SELFPAY ==
[2022-01-20 17:50] VITALS: BP 115/75; PULSE 84; RESP 19; TEMP 37.3; O2SAT 97; BMI 24.9
--- NOTE | 2022-01-20 18:12 | HMH.EDUTC ---
[facility] [place] Clinical Impression: Otitis media Qualifiers: Otitis media type: suppurative Chronicity: acute Laterality: left Recurrence: non-recurrent Spontaneous tympanic membrane rupture: without spontaneous rupture Qualified Code(s): H66.002 - Acute suppurative otitis media without spontaneous rupture of ear drum, left ear Acute maxillary sinusitis Qualifiers: Recurrence: non-recurrent Qualified Code(s): J01.00 - Acute maxillary sinusitis, unspecified Disposition: Home, Self-Care Condition on Discharge: Good Instructions: DI for Sinusitis, Middle Ear Infection Additional Instructions: Start antibiotic patient to take as ordered for a full length of time even if you feel better. Sinus infections do not get better overnight. It may take 2-3 days to notice much improvement so be sure to use conservative measures as discussed for symptoms. Flonase 1 spray each nostril daily to help with nasal congestion, sinus and ear pressure/information Increase fluids Humidifier/vaporizer as needed Tylenol and ibuprofen as needed for fever or pain. If symptoms do not improve or get worse return or be seen in the ER Follow-up with primary care this week Prescriptions: cephALEXin [Cephalexin 500mg Tab] 500 mg PO BID 7 Days #14 tab Prescription Printed Fluticasone Propionate [Flonase 50mcg nasal spray 16gm] 1 spr NS DAILY 14 Days #9.9 ml Prescription Printed Referrals: Jose Krueger MD [Primary Care Provider] - Time of Disposition: 18:16 Medical Decision Making - Kian Inquiry Pt receiving controlled substance: No Vital Signs: 01/20/22 17:50 Temperature 99.2 F Temperature Source Oral Pulse Rate [Right Brachial] 84 Respiratory Rate 19 Blood Pressure [Right Arm] 115/75 Blood Pressure Mean [Right Arm] 88 Blood Pressure Source [Right Arm] Automatic Cuff Blood Pressure Position [Right Arm] Sitting 02 Sat by Pulse Oximetry 97 Oxygen Delivery Method Room Air [facility] [place] - General Chief complaint: Urgent [facility] Stated complaint: sinus infection head congestion Time Seen by Provider: 01/20/22 18:12 Mode of Arrival: Ambulatory Source of Information: Patient Limitations: No Limitations Description of Symptoms (Recalled from Triage Doc. by RN): PATIENT C/O SORE THROAT, BIALTERAL EAR PAIN, AND SINUS PRESSURE X 3 DAYS HEENT Symptoms (Recalled from RN notes): Yes Resp Symptoms (Recalled from RN notes): No Skin Symptoms (Recalled from RN notes): No MS Symptoms (Recalled from RN notes): No Functional Status (Recalled from RN notes): WNL - Related Data Home Medications Medication Instructions Recorded Confirmed levothyroxine 88 mcg tablet 88 mcg PO DAILY tab 12/11/21 01/20/22 Previous Rx's Medication Instructions Recorded Fluticasone Propionate [Flonase 1 spr NS DAILY 14 Days #9.9 ml 01/20/22 50mcg nasal spray 16gm] cephALEXin [Cephalexin 500mg Tab] 500 mg PO BID 7 Days #14 tab 01/20/22 Allergies Allergy/AdvReac Type Severity Reaction Status Date / Time diphenhydramine Allergy Unknown Verified 12/11/21 15:51 [From BENADRYL] - Worker's Comp Is this a Worker's Comp case?: No [facility] History - Hepatitis A Screen Drug use history?: No High risk sexual behaviors?: No History of sexually transmitted infection?: No Currently employed?: No Childcare worker?: No Do you have indoor plumbing?: Yes Do you have electricity?: Yes Attestation statement:: This patient has been screened for Hepatitis A risk factors. I have reviewed the patient's past medical history: Yes Medical History: Denies:: Anxiety, Asthma, Cancer, Depression, Diabetes Mellitus Type 1, Diabetes Mellitus Type 2, Hypertension, MRSA, Seizures Other Medical History: Denies: Blood Transfusion Reaction Laterality Cases: Bilateral: Tonsillectomy Other Surgeries: Yes: Appendectomy, , Thyroidectomy, Tubal Ligation Amputation: No Fractures: No Comment: vag del x 2 w epidurals - Social History Smoking Status
[2022-01-20 18:18] VITALS: BP 115/75; PULSE 84; RESP 19; TEMP 37.3; O2SAT 97
[2022-01-20 18:22] LABS: UTC Strep Screen (Rapid) Negative (Negative)
== END 2022-01-20 18:22 | disposition home or self-care (01) ==
PROVIDERS: Emergency Provider Nurse Practitioner Family; PCP Internal Medicine Adolescent Medicine
DX: H66.002 Acute suppurative otitis media without spontaneous rupture of ear drum, left ear (principal); J01.00 Acute maxillary sinusitis, unspecified; J02.9 Acute pharyngitis, unspecified; F32.A Depression, unspecified; F41.9 Anxiety disorder, unspecified; Z79.51 Long term (current) use of inhaled steroids; Z79.899 Other long term (current) drug therapy
CPT/HCPCS: 87880; 99213; G0463

== ENCOUNTER 2023-06-09 07:58 | Emergency (ER) | payer BC, SELFPAY ==
[2023-06-09 08:10] VITALS: BP 118/78; PULSE 78; RESP 19; TEMP 36.8; O2SAT 98; BMI 29.5
[2023-06-09 08:23] LABS: Microscopic, Urine URINE MICROSCOPIC (MICROSCOPIC)
[2023-06-09 08:37] LABS: Appearance,Urine CLEAR (Clear); Bilirubin,Urine Negative (Negative); Blood, Urine 3+ (Negative); Color,Urine YELLOW (Yellow); Glucose,Urine (UA) Negative (Negative); Ketones,Urine Negative (Negative); Leukocyte Esterase,Urine 2+ (Negative); Nitrate,Urine Negative (Negative); PH,Urine 5.5 (5.0-8.5); Protein,Urine 2+ (Negative); Specific Gravity, Urine >= 1.030 (1.005-1.030); Urobilinogen,Urine 0.2 EU/dl (0.2)
--- NOTE | 2023-06-09 08:40 | EXP.UTC ---
Discharge Plan Disposition Patient Disposition: Home, Self-Care Condition: Good Prescriptions Prescriptions: New cefdinir 300 mg capsule 300 mg PO BID Qty: 20 0RF phenazopyridine [Pyridium] 200 mg tablet 200 mg PO Q8H 2 Days Qty: 6 0RF No Action levothyroxine 88 mcg tablet 88 mcg PO DAILY Patient Comments: TAKE 1 CAPSULE BY MOUTH EVERY DAY Referrals Follow up/Referrals: Jose Krueger MD [Primary Care Provider] - See instructions Activity Restrictions/Add. Instructions Additional Instructions/Restrictions: *Increase fluids. Water not Soda or Tea *Start antibiotic immediately and be sure to take as ordered for the FULL length of time although you should start to see improvement over the next 48 hours *Pyridium as needed Remember this medication will turn your urine . This is normal but it will stain what ever it gets on *You should not use Pyridium for more than 48 hours. If so , follow up with your primary physician to review urine culture and ensure that antibiotic is adequate for infection *Be SURE to follow up anytime for new or worsening symptoms with your family doctor. AND in 48 hours for urine culture results with your family doctor, if you do not have a doctor then you may call back to the [facility] for urine culture results and further treatment. We do recommend that you choose and establish care with a Primary Care Physician. ?AND follow up with them ?in 10-14 days to repeat UA to ensure infection is resolved and blood no longer present *Be sure to let your PCP know that we sent urine cultures from the [facility] so they can follow up to ensure that you area the on the correct antibiotic Call your doctor office and make appointment for 48 hours (2 days from today) ?to follow up and get the results of your urine culture and further treatment Clinical Impressions Clinical Impression: UTI (urinary tract infection) Qualifiers: Urinary tract infection type: site unspecified Hematuria presence: with hematuria Qualified Code(s): N39.0 - Urinary tract infection, site not specified Instructions Patient Instructions: Urinary Tract Infection, DI for Urinary Tract Infection (UTI) Discharge ED Provider: Sarina Engel [facility] – [place] HPI General Stated complaint: possible UTI Mode of Arrival: Ambulatory Source of Information: Patient Limitations: No Limitations Time Seen by Provider: 06/09/23 08:40 Description of Symptoms (Recalled from Triage Doc. by RN): PATIENT C/O LOWER BACK PAIN X 2 DAYS HEENT Symptoms (Recalled from RN notes): No Resp Symptoms (Recalled from RN notes): No Skin Symptoms (Recalled from RN notes): No MS Symptoms (Recalled from RN notes): Yes Functional Status (Recalled from RN notes): WNL History of Present Illness Provider Complaint: Patient states that she thinks she may have a UTI States that she [place] and she has been having low back pain, urinary urgency and frequency States that this morning she was still having symptoms so she came in to get checked Related Data Home Medications Medication Instructions Recorded Confirmed levothyroxine 88 mcg tablet 88 mcg PO DAILY THYROID 12/11/21 06/09/23 Previous Rx's Medication Instructions Recorded cefdinir 300 mg capsule 300 mg PO BID #20 caps 06/09/23 phenazopyridine 200 mg tablet 200 mg PO Q8H pain 2 days #6 tabs 06/09/23 (Pyridium) Allergies Allergy/AdvReac Type Severity Reaction Status Date / Time diphenhydramine Allergy Unknown Verified 12/11/21 15:51 [From BENADRYL] Worker's Comp Is this a Worker's Comp case?: No [facility] Disclaimer: The information contained in this section may have been updated after the patient was seen, as this information can be updated by other users. Medical History (Updated 06/09/23 @ 08:48 by Sarina Engel APRN) Hypothyroid Surgical History (Updated 06/09/23 @ 08:27 by Felicitas Turner RN) History of appendectomy History of section
[2023-06-09 08:50] VITALS: BP 118/78; PULSE 78; RESP 19; TEMP 36.8; O2SAT 98
[2023-06-09 08:50] LABS: Bacteria,Urine 1+ /lpf; Squamous Epithelial Cell,Urine Occasional #/hpf (0-5)
== END 2023-06-09 08:52 | disposition home or self-care (01) ==
PROVIDERS: Emergency Provider Nurse Practitioner; PCP Internal Medicine Adolescent Medicine
DX: N39.0 Urinary tract infection, site not specified (principal); B96.89 Other specified bacterial agents as the cause of diseases classified elsewhere; M54.59 Other low back pain; E03.9 Hypothyroidism, unspecified
CPT/HCPCS: 81001; 87086; 87088; 87186; 99212; 99214; G0463

== ENCOUNTER 2023-10-20 02:53 | Emergency (ER) | payer BC, SELFPAY ==
--- NOTE | 2023-10-20 02:51 | ECG_ITS ---
APPROVED REPORT Exam: Resting ECG HR:64 bpm ECG Measurements Heart Rate [address] 153 P 60 QRSd 118 QRS 80 QT 404 T 52 QTc 414 Conclusion SINUS RHYTHM INCOMPLETE RIGHT BUNDLE BRANCH BLOCK [90+ ms QRS DURATION, TERMINAL R IN V1/V2, 40+ ms S IN I/aVL/V4/V5/V6] BORDERLINE ECG UNCONFIRMED REPORT Electronically signed by : Jose Krueger MD 10/21/2023 17:40:03
[2023-10-20 02:54] VITALS: BP 133/83; PULSE 68; RESP 20; TEMP 36.8; O2SAT 97; BMI 26.6
[2023-10-20 03:04] VITALS: PULSE 68
[2023-10-20 03:30] VITALS: PULSE 76; RESP 14
--- NOTE | 2023-10-20 03:51 | XR_ITS ---
PROCEDURE INFORMATION: Exam: XR Chest Exam date and time: 10/20/2023 4:17 AM Age: 38 years old Clinical indication: Pain; Chest pressure; Additional info: Chest pain TECHNIQUE: Imaging protocol: Radiologic exam of the chest. Views: 2 views. COMPARISON: CT ABDOMEN PELVIS WO CON 11/12/2019 11:42 AM FINDINGS: Lungs: Unremarkable. No consolidation. Pleural spaces: Unremarkable. No pleural effusion. No pneumothorax. Heart/Mediastinum: Unremarkable. No cardiomegaly. Bones/joints: Unremarkable. IMPRESSION: No acute process noted.
[2023-10-20 04:00] VITALS: PULSE 72; RESP 14
[2023-10-20 04:00] LABS: Chloride 105 mmol/L (98-107)
[2023-10-20 04:01] LABS: Potassium 4.1 mmoL/L (3.5-5.1); Sodium 138 mmol/L (136-145)
[2023-10-20 04:02] LABS: Basophils % 0.4 % (0.1-2.0); Eosinophils # 0.1 K/mm3 (0.0-0.4); Eosinophils % 0.5 % (0.1-12.0); Hematocrit 38.2 % (37.0-47.0); Hemoglobin 12.5 g/dL (12.2-16.2); Lymphocytes # 1.5 K/mm3 (0.7-4.5); Lymphocytes % 17.2 % (10-50); Mean Corpuscular HGB Conc 32.7 g/dL (31.8-35.4); Mean Corpuscular Hemoglobin 27.8 pg (27.0-31.2); Monocytes # 0.3 K/mm3 (0.1-1.0); Monocytes % 3.2 % (1.7-9.3); Neutrophils % 78.5 % (37.0-80.0); Platelet Count 351 K/mm3 (142-424); Red Cell Distribution Width 13.9 % (11.5-17.5); White Blood Count 8.9 K/mm3 (4.8-10.8)
[2023-10-20 04:03] LABS: Alanine Aminotransferase 46 U/L (12-78); Albumin Level 4.4 g/dl (3.5-5.0); Alkaline Phosphatase 73 U/L (38-126); Aspartate Amino Transferase 113 U/L (14-36); Bilirubin,Total 0.4 mg/dl (0.2-1.3); Blood Urea Nitrogen 12 mg/dl (7-17); Creatinine Clearance Estimated 153 mL/min (50-200); Estimated Glomerular Filt Rate 111 ml/min (>60); GFR (African American) 135 ML/MIN (>60)
[2023-10-20 04:04] LABS: Albumin/Globulin Ratio 1.6 (1.1-1.8); Anion Gap 10.1 mEq/L (5-15); Carbon Dioxide 27 mmol/L (22.0-30.0); Globulin 2.7 g/dL (1.3-3.2); Glucose 139 mg/dl (74-100); HCG Qualitative, Serum Negative (Negative); Total Protein,Serum 7.1 g/dl (6.3-8.2)
--- NOTE | 2023-10-20 04:10 | PC.NURSE ---
Pt provided blanket, medicated, updated on status, no other needs at this time
[2023-10-20 04:21] LABS: Troponin I < 0.01 ng/ml (0.00-0.034)
[2023-10-20 05:59] LABS: Troponin I < 0.01 ng/ml (0.00-0.034)
--- NOTE | 2023-10-20 06:29 | HMH.EDCP ---
Discharge Plan Disposition Patient Disposition: Home, Self-Care Condition: Good Chief Complaint: Chest Pain Prescriptions Prescriptions: No Action levothyroxine 88 mcg tablet 88 mcg PO DAILY Patient Comments: TAKE 1 CAPSULE BY MOUTH EVERY DAY cefdinir 300 mg capsule 300 mg PO BID Qty: 20 0RF phenazopyridine [Pyridium] 200 mg tablet 200 mg PO Q8H 2 Days Qty: 6 0RF Referrals Follow up/Referrals: Provider,Referral, MD [Primary Care Provider] - See instructions Activity Restrictions/Add. Instructions Additional Instructions/Restrictions: Follow-up with primary care within the next 3 to 4 days. Return to the emergency department if worsening. Clinical Impressions Clinical Impression: Acute chest wall pain Instructions Patient Instructions: DI for Atypical Chest Pain Discharge ED Provider: Zuleika Drummond General Chief Complaint: Chest Pain Stated Complaint: chest pain Time Seen by Provider: 10/20/23 03:42 Mode of Arrival: Ambulatory Source of Information: Patient Limitations: No Limitations Description of Symptoms (Recalled from ER Triage Doc. by RN): pt reports had some tingling in left side of neck today, now having midsternal CP, reports nausea, tried to take tums but no help History of Present Illness HPI narrative: Ms. Medina is a 38-year-old female, previously healthy presenting with chest pain. Patient has had gradually progressing midsternal chest pain since yesterday evening that has now been persistent so she presented to the emergency department. She has never had chest pain like this before. It worsens with palpation of her anterior chest and is not alleviated by anything. No cough, shortness of breath, fever, or other concerns. No limb swelling, pain, or other concerns. Related Data Home Medications Medication Instructions Recorded Confirmed levothyroxine 88 mcg tablet 88 mcg PO DAILY THYROID 12/11/21 06/09/23 Previous Rx's Medication Instructions Recorded cefdinir 300 mg capsule 300 mg PO BID #20 caps 06/09/23 phenazopyridine 200 mg tablet 200 mg PO Q8H pain 2 days #6 tabs 06/09/23 (Pyridium) Allergies Allergy/AdvReac Type Severity Reaction Status Date / Time diphenhydramine Allergy Unknown Verified 12/11/21 15:51 [From BENADRYL] [facility] Disclaimer: The information contained in this section may have been updated after the patient was seen, as this information can be updated by other users. Medical History Hypothyroid Surgical History History of appendectomy History of section History of tonsillectomy History of tubal ligation History of tympanostomy tube placement Social History Smoking Status: Never smoker alcohol intake: never substance use type: denies use current occupational status: employed Travel in the last 8 weeks: None household members: family housing: house current occupation: teacher current occupational exposures/hazards: No ROS Obtained: Yes All systems reviewed & no additional complaints except as documented Physical Exam General General appearance: alert and in no apparent distress Head Head exam: atraumatic, normocephalic and normal inspection Eye Eye exam: Present normal appearance, PERRL and EOMI ENT ENT exam: Present normal exam, normal oropharynx, mucous membranes moist, TM's normal bilaterally and normal external ear exam Neck Neck exam: Present normal inspection, full ROM and trachea midline; Absent meningismus or lymphadenopathy Chest Chest inspection: Present normal inspection, symmetric chest wall rise and tenderness (Significant tenderness to palpation of the anterior chest) Respiratory Respiratory exam: Present normal lung sounds bilaterally; Absent respiratory distress [facility]
[2023-10-20 06:44] VITALS: BP 110/73; PULSE 59; RESP 16; TEMP 36.6; O2SAT 98
== END 2023-10-20 06:45 | disposition home or self-care (01) ==
PROVIDERS: Emergency Provider Emergency Medicine
DX: R07.89 Other chest pain (principal); R11.0 Nausea; E03.9 Hypothyroidism, unspecified
CPT/HCPCS: 71046; 80053; 84484; 84703; 85025; 93005; 96374; 99285

== ENCOUNTER 2024-05-23 18:52 | Observation (INO) | payer BC, SELFPAY ==
[2024-05-23] VITALS (7 sets, daily range): BP systolic 106–125; BP diastolic 69–80; PULSE 63–65; RESP 16–20; TEMP 36.6–36.9; O2SAT 98–100; BMI 29.2; BMI 29.7
--- NOTE | 2024-05-23 19:27 | CT_ITS ---
PROCEDURE INFORMATION: Exam: CT Abdomen And Pelvis With Contrast Exam date and time: 05/23/2024 8:04 PM Age: 38 years old Clinical indication: Abdominal pain; Epigastric; Additional info: Ruq epigastric pain TECHNIQUE: Imaging protocol: Computed tomography of the abdomen and pelvis with contrast. Radiation optimization: All CT scans at this facility use at least one of these dose optimization techniques: automated exposure control; mA and/or kV adjustment per patient size (includes targeted exams where dose is matched to clinical indication); or iterative reconstruction. Contrast material: ISOVUE; Contrast volume: 75 ml; Contrast route: IV; COMPARISON: CT ABDOMEN PELVIS WO CON 11/12/2019 11:42 AM FINDINGS: Lungs: Clear basilar lung parenchyma. Pleural spaces: No pleural fluid or pneumothorax. Heart: Normal heart size. Diaphragm: Small sliding hiatal hernia. Liver: 1.9 cm enhancing nodule at the dome the liver demonstrates morphology most compelling for hemangioma. Gallbladder and biliary ducts: There is cholelithiasis with equivocal gallbladder wall thickening. No biliary tree dilation or high-density common duct stones. Pancreas: Normal. No ductal dilation. Spleen: Normal. No splenomegaly. Adrenal glands: Normal configuration. Kidneys and ureters: Kidneys enhance symmetrically and demonstrate no evidence of mass, calculus, obstruction, or inflammation. Stomach and bowel: Postprandial stomach. Normal caliber small bowel. Distal colonic diverticulosis without evidence of acute diverticulitis. Appendix: No evidence of appendicitis. Intraperitoneal space: No free air. No significant fluid collection. Vasculature: Normal caliber arterial structures. Lymph nodes: No enlarged lymph nodes. Urinary bladder: Unremarkable as visualized. Reproductive: There is generalized uterine enlargement measuring 10.4 x 5.1 x 7.8 cm for a volume of approximately 215 cc. No adnexal mass or inflammation. Bones/joints: No fracture or destructive lesion. Soft tissues: Tiny fat containing umbilical hernia. Fat containing right indirect inguinal hernia. IMPRESSION: 1. There is gallbladder wall thickening and cholelithiasis which may reflect acute cholecystitis. Ultrasound may be helpful if clinical scenario is unresolved. No biliary tree dilation. 2. There is generalized enlargement of the uterus without discrete mass potentially reflecting adenomyosis. Correlate with any symptoms of menorrhagia.
[2024-05-23 19:33] LABS: Microscopic, Urine URINE MICROSCOPIC (MICROSCOPIC)
[2024-05-23] MEDS: ACETAMINOPHEN 1,000MG/100ML VIAL 1000 MG IV (19:33)
[2024-05-23] MEDS: MORPHINE 4MG/ML SYRINGE 4 MG IV (19:33)
[2024-05-23] MEDS: LACTATED RINGERS 1000ML 1,000 ML 999 ML IV (19:34)
[2024-05-23] MEDS: ONDANSETRON 4MG/2ML VIAL 4 MG IV (19:34)
[2024-05-23 19:40] LABS: Basophils # 0.1 K/mm3 (0-0.2); Eosinophils # 0.1 K/mm3 (0.0-0.4); Eosinophils % 1.4 % (0.1-12.0); Hematocrit 42.1 % (37.0-47.0); Hemoglobin 13.3 g/dL (12.2-16.2); Lymphocytes # 2.3 K/mm3 (0.7-4.5); Lymphocytes % 22.9 % (10-50); Mean Corpuscular HGB Conc 31.5 g/dL (31.8-35.4); Mean Corpuscular Volume 88.9 fl (81-99); Mean Platelet Volume 7.3 fl (7.4-10.4); Monocytes # 0.5 K/mm3 (0.1-1.0); Monocytes % 4.8 % (1.7-9.3); Neutrophils # 7.1 K/mm3 (1.8-7.8); Neutrophils % 69.9 % (37.0-80.0); Platelet Count 488 K/mm3 (142-424); Red Blood Count 4.74 M/mm3 (4.20-5.40); Red Cell Distribution Width 14.3 % (11.5-17.5); White Blood Count 10.2 K/mm3 (4.8-10.8)
--- NOTE | 2024-05-23 19:41 | ED_ITS ---
Discharge Plan Disposition Patient Disposition: Home, Self-Care Chief Complaint: Abdominal Pain Prescriptions Prescriptions: No Action levothyroxine 88 mcg tablet 88 mcg PO DAILY Patient Comments: TAKE 1 CAPSULE BY MOUTH EVERY DAY Referrals Follow up/Referrals: Jose Krueger MD [Primary Care Provider] - See instructions Clinical Impressions Clinical Impression: Acute cholecystitis, Enlarged uterus Instructions Patient Instructions: DI for Acute Abdominal Pain Discharge ED Provider: Magdaleno Samuel General Adult HPI General Chief complaint: Abdominal Pain Stated complaint: Abdominal pain,vomiting Time Seen by Provider: 05/23/24 19:03 Mode of Arrival: Ambulatory Source of Information: Patient Limitations: No Limitations Description of Symptoms (Recalled from ER Triage Doc. by RN): abdominal and back pain History of Present Illness HPI narrative: Patient is a 38-year-old female with no pertinent past medical history with the exception of previous appendectomy who presents emergency department for evaluation of abdominal pain. Onset was acute, approximately 1 hour prior to arrival. Patient ate at a new restaurant with chicken that tasted funny and after he became sweaty and had severe crampy epigastric and right upper quadrant abdominal pain that caused her to present here for continued evaluation. No other acute complaints at this time. Related Data Home Medications Medication Instructions Recorded Confirmed levothyroxine 88 mcg tablet 88 mcg PO DAILY THYROID 12/11/21 06/09/23 Allergies Allergy/AdvReac Type Severity Reaction Status Date / Time diphenhydramine Allergy Unknown Verified 04/22/24 13:31 [From BRIE] [facility] Disclaimer: The information contained in this section may have been updated after the patient was seen, as this information can be updated by other users. Medical History Hypothyroid Surgical History History of tympanostomy tube placement History of tubal ligation History of tonsillectomy History of section History of appendectomy Family History Other No significant family history Social History Smoking Status: Never smoker alcohol intake: never substance use type: denies use current occupational status: employed Travel in the last 8 weeks: None household members: family housing: house current occupation: teacher current occupational exposures/hazards: No ROS Obtained: Yes Systems reviewed as appropriate & no additional complaints except as documented Physical Exam General General appearance: alert and in no apparent distress Head Head exam: atraumatic and normocephalic Eye Eye exam: Present PERRL ENT ENT exam: Present mucous membranes moist Neck Neck exam: Present normal inspection Chest Chest inspection: Present normal inspection and symmetric chest wall rise Respiratory Respiratory exam: Absent respiratory distress Cardiovascular Cardiovascular exam: Present regular rate and normal rhythm Abdominal Exam Abdominal exam: Present soft and tenderness (Epigastric, right upper quadrant) Extremities Exam Extremities exam: Present normal inspection Neurological Exam Neurological exam: Present alert Psychiatric Psychiatric exam: Present normal affect Skin Skin exam: Present warm and dry Medical Decision Making Kian Inquiry Pt receiving controlled substance: No Vital Signs: 05/23/24 18:53 05/23/24 20:30 05/23/24 21:00 Pulse Rate 64 65 Pulse Rate [Right] 64 Respiratory Rate 20 Blood Pressure 125/80 107/73 L Blood Pressure [Right Arm] 115/69 Blood Pressure Mean 95 84 Blood Pressure Mean [Right Arm] 84 Blood Pressure Source Blood Pressure Position 02 Sat by Pulse Oximetry 100 100 98 Oxygen Delivery Method Room Air Room Air Room Air 05/23/24 21:34 Pulse Rate 64 Pulse Rate [Right] Respiratory Rate 16 Blood Pressure 107/73 L Blood Pressure [Right Arm] Blood Pressure Mean Blood Pressure Mean [Right Arm] Blood Pressure Source Automatic Cuff Blood Pressure Position Supine 02 Sat by Pulse Oximetry 99 Oxygen Delivery Method Room Air Lab Data Lab Results 05/23/24 18:57: Urine Color Yellow, Urine Appearance Clear, Urine pH 6.0, Ur Specific [place] >= 1.030, Urine Protein Negative, Urine Glucose (UA) Negative, Urine Ketones Negative, Urine Blood 1+, Urine Nitrate Negative, Urine Bilirubin Negative, Urine Urobilinogen 0.2, Ur Leukocyte Esterase 1+ A, Urine RBC Occasional, Urine WBC 5-10, Ur Squamous Epith Cells 10-20, Urine Bacteria 1+ 05/23/24 19:08: WBC 10.2, RBC 4.74, Hgb 13.3, Hct 42.1, MCV 88.9, MCH 28.0, MCHC 31.5 L, RDW 14.3, Plt Count 488 H, MPV 7.3 L, Neut % (Auto) 69.9, Lymph % (Auto) 22.9, [place] % (Auto) 4.8, Eos % (Auto) 1.4, Baso % (Auto) 1.0, Neut # (Auto) 7.1, Lymph # (Auto) 2.3, [place] # (Auto) 0.5, Eos # (Auto) 0.1, Baso # (Auto) 0.1, Sodium 142, Potassium 3.7, Chloride 108 H, Carbon Dioxide 27, Anion Gap 10.7, BUN 12, Creatinine 0.70, Estimated Creat Clear 127, Estimated GFR 93, Est GFR ( Amer) 113, Glucose 108 H, Calcium 9.5, Total Bilirubin 0.3, AST 48 H, ALT 69, Alkaline Phosphatase 68, Total Protein 8.1, Albumin 4.7, Globulin 3.4 H, Albumin/Globulin Ratio 1.4, Lipase 100, Serum HCG, Qual Negative 05/23/24 19:08 05/23/24 19:08 Orders (Tests/Meds): ED MEDICATIONS Generic Name Dose Route Start Last Admin Trade Name Freq PRN Reason Stop Dose Admin Ceftriaxone Sodium 1 gm/ 50 mls @ 100 mls/hr 05/23/24 22:12 Sodium Chloride IV 05/23/24 22:41 ONCE ONE Metronidazole 500 mg in 100 mls @ 100 mls/hr 05/23/24 22:12 Flagyl 500mg/100ml Ivpb IV 05/23/24 23:11 ONCE ONE Discontinued Medications Generic Name Dose Route Start Last Admin Trade Name Freq PRN Reason Stop Dose Admin Acetaminophen 1,000 mg 05/23/24 19:27 05/23/24 19:33 Acetaminophen 1,000mg/100ml Vial IV 05/23/24 19:28 1,000 mg ONCE ONE Administration Lactated Ringer's 1,000 mls @ 999 mls/hr 05/23/24 19:27 05/23/24 19:34 Lactated Ringer's 1000 Ml Bag IV 05/23/24 20:27 999 mls/hr .Q1H1M ONE Administration Iopamidol 75 ml 05/23/24 20:02 05/23/24 20:03 Iopamidol-370 (76%);100ml Bottle IV 05/23/24 20:03 75 ml ONCE ONE Administration Morphine Sulfate 4 mg 05/23/24 19:27 05/23/24 19:33 Morphine 4mg/Ml Syringe IV 05/23/24 19:28 4 mg ONCE ONE Administration Ondansetron HCl 4 mg 05/23/24 19:27 05/23/24 19:34 Ondansetron 4mg/2ml Vial IV 05/23/24 19:28 4 mg ONCE ONE Administration Sodium Chloride 10 ml 05/23/24 20:02 05/23/24 20:03 Sodium Chloride 0.9% 10ml Syr (Rad Only) IV 05/23/24 20:03 10 ml ONCE ONE Administration ORDERS Category Date Time Status CT abdomen pelvis w con Stat Cat Scan 05/23/24 19:27 Completed CBC w/Auto Diff [Complete Blood Count Auto Diff] Stat Lab 05/23/24 19:08 Completed CMP [Comprehensive Metabolic Panel] Stat Lab 05/23/24 19:08 Completed HCG Qualitative, Serum Stat Lab 05/23/24 19:08 Completed Lipase Stat Lab 05/23/24 19:08 Completed UA [Urinalysis and Microscopic] Stat Lab 05/23/24 18:57 Completed Urine Culture Stat Micro 05/23/24 18:57 Received Medical Decision Narrative: In summary patient is a 38-year-old female with past medical history described above who presents emergency department for evaluation of abdominal pain. Patient is hemodynamically stable nontoxic-appearing upon arrival, tender in the epigastrium and right upper quadrant. Differential diagnosis includes toxin mediated gastroenteropathy, cholecystitis, pancreatitis, among others. Workup will be conducted with hematologic labs, urinalysis, CT abdomen pelvis IV contrast. Initial inventions include crystalloid bolus, morphine, IV Tylenol, IV Zofran. Initial workup reviewed by me, hematologic labs are nonactionable, hCG negative, no significant leukocytosis, no NAVIN or critical electrolyte abnormality, lipase normal. Urinalysis interpreted by me, contaminated but not consistent with overt infection. CT imaging of the abdomen and pelvis shows gallbladder wall thickening with cholelithiasis without biliary tree dilatation with generalized enlargement of the uterus without discrete mass. These findings were relayed to patient at bedside and with respect to enlarged uterus she will follow-up on an outpatient basis. Given no concern for choledocholithiasis patient is appropriate for admission at our hospital system. The case was discussed hospital medicine regarding management and they were told to put in a consult order for the surgeon to see them in the morning. Patient was started on ceftriaxone and metronidazole prior to admission. Critical Care Critical Care Time Critical Care Time: No
[2024-05-23 19:49] LABS: Chloride 108 mmol/L (98-107); Potassium 3.7 mmoL/L (3.5-5.1); Sodium 142 mmol/L (136-145)
[2024-05-23 19:51] LABS: Alanine Aminotransferase 69 U/L (12-78); Alkaline Phosphatase 68 U/L (38-126); Aspartate Amino Transferase 48 U/L (14-36); Bilirubin,Total 0.3 mg/dl (0.2-1.3); Blood Urea Nitrogen 12 mg/dl (7-17); Creatinine Clearance Estimated 127 mL/min (50-200); Estimated Glomerular Filt Rate 93 ml/min (>60); GFR (African American) 113 ML/MIN (>60)
[2024-05-23 19:52] LABS: Albumin Level 4.7 g/dl (3.5-5.0); Albumin/Globulin Ratio 1.4 (1.1-1.8); Anion Gap 10.7 mEq/L (5-15); Calcium 9.5 mg/dl (8.4-10.2); Carbon Dioxide 27 mmol/L (22.0-30.0); Globulin 3.4 g/dL (1.3-3.2); Glucose 108 mg/dl (74-100); HCG Qualitative, Serum Negative (Negative); Lipase 100 U/L (23-300); Total Protein,Serum 8.1 g/dl (6.3-8.2)
[2024-05-23 19:57] LABS: Appearance,Urine CLEAR (Clear); Bilirubin,Urine Negative (Negative); Blood, Urine 1+ (Negative); Color,Urine YELLOW (Yellow); Glucose,Urine (UA) Negative (Negative); Ketones,Urine Negative (Negative); Leukocyte Esterase,Urine 1+ (Negative); Nitrate,Urine Negative (Negative); Protein,Urine Negative (Negative); Specific Gravity, Urine >= 1.030 (1.005-1.030); Urobilinogen,Urine 0.2 EU/dl (0.2)
[2024-05-23] MEDS: SODIUM CHLORIDE 0.9% 10ML SYR (RAD ONLY) 10 ML IV (20:03)
[2024-05-23] MEDS: IOPAMIDOL-370 (76%);100ML BOTTLE 75 ML IV (20:03)
[2024-05-23 20:22] LABS: Bacteria,Urine 1+ /lpf
[2024-05-23 20:24] LABS: RBC,Urine Occasional #/hpf (0-3)
[2024-05-23] MEDS: CEFTRIAXONE 1 GM 1 GM in 0.9 % SODIUM CHLORIDE 50 ML IV (22:19)
[2024-05-23] MEDS: LACTATED RINGERS 1000ML 1,000 ML 100 ML IV (22:58)
[2024-05-23] MEDS: METRONIDAZ/SOD CHL 500 MG/100 ML PIGGYBACK 100 MG IV (22:59)
--- NOTE | 2024-05-23 23:03 | PC.NURSE ---
Patient arrived to floor via wheelchair from ED at 22:54.
--- NOTE | 2024-05-23 23:37 | EXP.HP ---
History of Present Illness *Admission Date: 05/23/24 *Reason for visit:: Acute cholecystitis *History of present illness: Alicia Medina is a 38-year-old female past medical history significant for hypothyroid who presents the emergency room tonight with complaints of abdominal pain. Ms. Medina states her abdominal pain started approximately noon this afternoon. Reports that she had lunch and her pain started fairly soon after that. Reported as right upper quadrant and epigastric pain. Sharp, stabbing in nature, rated as a 9/10 at its worst. Has not had issues with her gallbladder in the past. Has had an appendectomy, , and has had a tubal ligation. No other abdominal surgeries noted. Denies any fever, cough, chest pain, shortness of breath. No focal neurodeficits noted. No bowel or bladder issues. Does not take any blood thinners. Denies tobacco use, alcohol use, illicit drug use. Lab work in the ER was essentially unremarkable. AST slightly evaded at 48. UA was noninfectious. No white count noted. CT of the abdomen pelvis showed gallbladder wall thickening consistent with acute cholecystitis, no biliary tree dilatation. Patient was given pain management as well as antiemetics and started on Rocephin and Flagyl in the ER. She will be under the hospitalist service for acute cholecystitis. [facility] Disclaimer: The information contained in this section may have been updated after the patient was seen, as this information can be updated by other users. Medical History (Updated 05/24/24 @ 00:05 by Lian Weir APRN) Hypothyroid Surgical History History of tympanostomy tube placement History of tubal ligation History of tonsillectomy History of section History of appendectomy Family History Other No significant family history Social History (Updated 05/23/24 @ 23:08 by Jahaira Jain RN) Smoking Status: Never smoker alcohol intake: never substance use type: denies use current occupational status: employed Travel in the last 8 weeks: None household members: family housing: house current occupation: teacher current occupational exposures/hazards: No Review of Systems *Cardiovascular Cardiovascular: Reports system reviewed and no additional complaints, except as documented *Respiratory Respiratory: Reports system reviewed and no additional complaints, except as documented *Gastrointestinal Gastrointestinal: Reports abdominal pain and Reports nausea *Genitourinary Genitourinary: Reports system reviewed and no additional complaints, except as documented *Musculoskeletal Musculoskeletal: Reports system reviewed and no additional complaints, except as documented *Neurologic Neurologic: Reports system reviewed and no additional complaints, except as documented Meds Home Medications and Allergies Home Medications Medication Instructions Recorded Confirmed Type levothyroxine 88 mcg tablet 88 mcg PO DAILY 12/11/21 05/23/24 History New Prescriptions to Start Prescriptions: Allergies Allergy/AdvReac Type Severity Reaction Status Date / Time diphenhydramine Allergy Unknown Verified 04/22/24 13:31 [From BENADRYL] Exam Data for Last 24 hours Vital signs and Labs for Last 24 Hours: Temp Pulse Resp BP Pulse Ox O2 Del Method 98.4 F 63 16 106/71 L 99 Room Air 05/23/24 23:03 05/23/24 23:03 05/23/24 23:03 05/23/24 23:03 05/23/24 23:03 05/23/24 23:03 Laboratory Results - last 24 hr 05/23/24 18:57: Urine Color Yellow, Urine Appearance Clear, Urine pH 6.0, Ur Specific [place] >= 1.030, Urine Protein Negative, Urine Glucose (UA) Negative, Urine Ketones Negative, Urine Blood 1+, Urine Nitrate Negative, Urine Bilirubin Negative, Urine Urobilinogen 0.2, Ur Leukocyte Esterase 1+ A, Urine RBC Occasional, Urine WBC 5-10, Ur Squamous Epith Cells 10-20, Urine Bacteria 1+ 05/23/24 19:08: WBC 10.2, RBC 4.74, Hgb 13.3, Hct 42.1, MCV 88.9, MCH 28.0, MCHC 31.5 L, RDW 14.3, Plt Count 488 H, MPV 7.3 L, Neut % (Auto) 69.9, Lymph % (Auto) 22.9, [place] % (Auto) 4.8, Eos % (Auto) 1.4, Baso % (Auto) 1.0, Neut # (Auto) 7.1, Lymph # (Auto) 2.3, [place] # (Auto) 0.5, Eos # (Auto) 0.1, Baso # (Auto) 0.1, Sodium 142, Potassium 3.7, Chloride 108 H, Carbon Dioxide 27, Anion Gap 10.7, BUN 12, Creatinine 0.70, Estimated Creat Clear 127, Estimated GFR 93, Est GFR ( Amer) 113, Glucose 108 H, Calcium 9.5, Total Bilirubin 0.3, AST 48 H, ALT 69, Alkaline Phosphatase 68, Total Protein 8.1, Albumin 4.7, Globulin 3.4 H, Albumin/Globulin Ratio 1.4, Lipase 100, Serum HCG, Qual Negative I & O for Last 24 hours: Intake & Output 05/20/24 05/21/24 05/22/24 05/23/24 23:59 23:59 23:59 23:59 Weight 76.022 kg *Routine HEENT Exam Head: Present normocephalic and atraumatic Eye: Present EOMI and PERRL ENT: Present mucous membranes moist *Routine Neck Exam Neck: Present supple and full ROM *Routine Respiratory Exam Respiratory: Present CTA bilaterally *Routine Cardiovascular Exam Cardiovascular: Present RRR, Normal S1 and Normal S2 *Routine Abdominal Exam Abdominal: Present soft, normoactive bowel sounds and tenderness Comments: Right upper quadrant and epigastric tenderness to palpation, no peritoneal signs *Routine Rectal Exam Rectal:: deferred *Routine Genitalia Exam Genitalia:: deferred *Routine Extremities Exam Extremities: Present pulses intact and normal capillary refill *Routine Skin Exam Skin: Present intact *Routine Neurological Exam Neurological: Present alert, oriented X3 and moving all extremities Assessment and Plan *Assessment and plan (1) Acute cholecystitis: Status: Acute Category: Medical Code(s): K81.0 - Acute cholecystitis (2) Hypothyroid: Status: Acute Qualifiers: Hypothyroidism type: unspecified Qualified Code(s): E03.9 - Hypothyroidism, unspecified Category: Medical Code(s): E03.9 - Hypothyroidism, unspecified Plan Assessment: This is a 38-year-old female being admitted for acute cholecystitis. On my exam, patient is lying in bed in no acute distress. Reports her pain is greatly improved after pain medication. No other complaints. Plan: Admit to observation-MedSurg Acute cholecystitis -N.p.o. -Continue Rocephin and Flagyl -Consult to general surgery -Pain management as needed -Antiemetics as needed -Will give maintenance IV fluids overnight Hypothyroid -Continue Synthroid DVT prophylaxis: SCDs CODE STATUS: Full code Surrogate decision maker: Chepe [phone] Skin: low risk
[2024-05-24 04:00] VITALS: BP 109/87; PULSE 66; RESP 16; TEMP 36.6; O2SAT 96; BMI 29.7
--- NOTE | 2024-05-24 05:13 | PC.NURSE ---
Pt is alert and oriented. Pt has not complained of pain since arriving to floor. Rested well. at bedside. Abdomen soft and nontender. RA. No nausea since arriving. LR running 100mL/hr. Independent in room. Call light in reach.
[2024-05-24] MEDS: METRONIDAZ/SOD CHL 500 MG/100 ML PIGGYBACK 100 MG IV ×3 (05:39→21:33)
[2024-05-24 07:05] LABS: Basophils # 0.1 K/mm3 (0-0.2); Basophils % 0.8 % (0.1-2.0); Eosinophils # 0.1 K/mm3 (0.0-0.4); Eosinophils % 1.4 % (0.1-12.0); Hematocrit 36.7 % (37.0-47.0); Lymphocytes # 1.9 K/mm3 (0.7-4.5); Mean Corpuscular HGB Conc 32.6 g/dL (31.8-35.4); Mean Corpuscular Hemoglobin 28.5 pg (27.0-31.2); Mean Corpuscular Volume 87.4 fl (81-99); Mean Platelet Volume 7.8 fl (7.4-10.4); Monocytes # 0.4 K/mm3 (0.1-1.0); Monocytes % 4.5 % (1.7-9.3); Neutrophils # 6.2 K/mm3 (1.8-7.8); Neutrophils % 71.4 % (37.0-80.0); Platelet Count 402 K/mm3 (142-424); Red Cell Distribution Width 14.5 % (11.5-17.5); White Blood Count 8.6 K/mm3 (4.8-10.8)
[2024-05-24 07:15] LABS: Alanine Aminotransferase 48 U/L (12-78); Albumin Level 3.4 g/dl (3.5-5.0); Albumin/Globulin Ratio 1.3 (1.1-1.8); Alkaline Phosphatase 52 U/L (38-126); Anion Gap 5.6 mEq/L (5-15); Aspartate Amino Transferase 31 U/L (14-36); Bilirubin,Total 0.4 mg/dl (0.2-1.3); Blood Urea Nitrogen 8 mg/dl (7-17); Calcium 8.6 mg/dl (8.4-10.2); Carbon Dioxide 26 mmol/L (22.0-30.0); Chloride 109 mmol/L (98-107); Creatinine Clearance Estimated 151 mL/min (50-200); Estimated Glomerular Filt Rate 111 ml/min (>60); GFR (African American) 135 ML/MIN (>60); Globulin 2.7 g/dL (1.3-3.2); Glucose 92 mg/dl (74-100); Magnesium 1.9 mg/dl (1.6-2.3); Potassium 3.6 mmoL/L (3.5-5.1); Sodium 137 mmol/L (136-145); Total Protein,Serum 6.1 g/dl (6.3-8.2)
[2024-05-24 07:16] LABS: INR 0.98 (0.9-1.1)
[2024-05-24 08:00] VITALS: BP 96/62; PULSE 64; RESP 16; TEMP 36.6; O2SAT 100
--- NOTE | 2024-05-24 08:06 | P.PN_ITS ---
Subjective *Date: 05/24/24 *Time: 11:18 Interval history: Patient is seen and examined today at bedside and I a.m. accompanied by nursing staff (Sean TRIMBLE). The patient's is at bedside. Nursing staff reports that the patient remains afebrile with stable vital signs and saturating appropriately on room air. Patient reports improved abdominal pain. She is tolerating her therapy with no adverse events. She remains n.p.o. and general surgery is due to evaluate the patient. Exam Data for Last 24 hours Vital signs and Labs for Last 24 Hours: Temp Pulse Resp BP Pulse Ox O2 Del Method 97.9 F 66 16 109/87 L 96 Room Air 05/24/24 04:00 05/24/24 04:00 05/24/24 04:00 05/24/24 04:00 05/24/24 04:00 05/24/24 06:46 Laboratory Results - last 24 hr 05/23/24 18:57: Urine Color Yellow, Urine Appearance Clear, Urine pH 6.0, Ur Specific [place] >= 1.030, Urine Protein Negative, Urine Glucose (UA) Negative, Urine Ketones Negative, Urine Blood 1+, Urine Nitrate Negative, Urine Bilirubin Negative, Urine Urobilinogen 0.2, Ur Leukocyte Esterase 1+ A, Urine RBC Occasional, Urine WBC 5-10, Ur Squamous Epith Cells 10-20, Urine Bacteria 1+ 05/23/24 19:08: WBC 10.2, RBC 4.74, Hgb 13.3, Hct 42.1, MCV 88.9, MCH 28.0, MCHC 31.5 L, RDW 14.3, Plt Count 488 H, MPV 7.3 L, Neut % (Auto) 69.9, Lymph % (Auto) 22.9, [place] % (Auto) 4.8, Eos % (Auto) 1.4, Baso % (Auto) 1.0, Neut # (Auto) 7.1, Lymph # (Auto) 2.3, [place] # (Auto) 0.5, Eos # (Auto) 0.1, Baso # (Auto) 0.1, Sodium 142, Potassium 3.7, Chloride 108 H, Carbon Dioxide 27, Anion Gap 10.7, BUN 12, Creatinine 0.70, Estimated Creat Clear 127, Estimated GFR 93, Est GFR ( Amer) 113, Glucose 108 H, Calcium 9.5, Total Bilirubin 0.3, AST 48 H, ALT 69, Alkaline Phosphatase 68, Total Protein 8.1, Albumin 4.7, Globulin 3.4 H, Albumin/Globulin Ratio 1.4, Lipase 100, Serum HCG, Qual Negative 05/24/24 06:20: WBC 8.6, RBC 4.20, Hgb 12.0 L, Hct 36.7 L, MCV 87.4, MCH 28.5, MCHC 32.6, RDW 14.5, Plt Count 402, MPV 7.8, Neut % (Auto) 71.4, Lymph % (Auto) 22.0, [place] % (Auto) 4.5, Eos % (Auto) 1.4, Baso % (Auto) 0.8, Neut # (Auto) 6.2, Lymph # (Auto) 1.9, [place] # (Auto) 0.4, Eos # (Auto) 0.1, Baso # (Auto) 0.1, PT 11.0, INR 0.98, Sodium 137, Potassium 3.6, Chloride 109 H, Carbon Dioxide 26, Anion Gap 5.6, BUN 8 D, Creatinine 0.60, Estimated Creat Clear 151, Estimated GFR 111, Est GFR ( Amer) 135, Glucose 92, Calcium 8.6, Magnesium 1.9, Total Bilirubin 0.4, AST 31 D, ALT 48 D, Alkaline Phosphatase 52, Total Protein 6.1 L, Albumin 3.4 L D, Globulin 2.7, Albumin/Globulin Ratio 1.3 I & O for Last 24 hours: Intake & Output 05/21/24 05/22/24 05/23/24 05/24/24 23:59 23:59 23:59 23:59 Output Total 0 / 0 Balance 0 / 0 Weight 76.022 kg 76.022 kg Constitutional Constitutional: no acute distress *Routine HEENT Exam Head: Present normocephalic ENT: Present mucous membranes moist *Routine Neck Exam Neck: Present supple *Routine Respiratory Exam Respiratory: Present normal respiratory effort and symmetric chest movement *Routine Cardiovascular Exam Cardiovascular: Present RRR; Absent murmur *Routine Abdominal Exam Abdominal: Present soft, normoactive bowel sounds and tenderness *Routine Extremities Exam Extremities: Present full ROM; Absent edema *Routine Skin Exam Skin: Present intact; Absent jaundice *Routine Neurological Exam Neurological: Present alert, oriented X3, moving all extremities, vision grossly intact, hearing grossly intact and normal speech Routine Psychiatric Exam Psychiatric: Present normal affect, normal thought process, cooperative, good insight and good judgment Assessment and Plan *Assessment and plan (1) Acute cholecystitis: Status: Acute Category: Medical Code(s): K81.0 - Acute cholecystitis (2) Hypothyroid: Status: Acute Qualifiers: Hypothyroidism type: unspecified Qualified Code(s): E03.9 - Hypothyroidism, unspecified Category: Medical Code(s): E03.9 - Hypothyroidism, unspecified Plan This is a 38-year-old female being admitted for acute cholecystitis. Acute cholecystitis General surgery consult CT abdomen and pelvis with acute cholecystitis N.p.o. IV Rocephin and metronidazole Parenterally administered controlled substance for comfort care IV antiemetic therapy Gentle IV fluid resuscitation RUQ ultrasound pending Trending labs and inflammatory markers Hypothyroid Levothyroxine replacement therapy DVT prophylaxis: SCDs CODE STATUS: Full code Surrogate decision maker: Chepe [phone] The patient is hospitalized day 1 with above diagnoses. We appreciate sap payroll consultant evaluation, surgical recommendations and postoperative care recommendations. Case management is assisting with discharge planning. Barriers to discharge currently include sap payroll consultant evaluation, surgical intervention and postprocedural care. Expected date of discharge cannot be determined at present time but expected over the next day or 2.
--- NOTE | 2024-05-24 08:15 | EXP.SURG.CON ---
History of Present Illness *Admission Date: 05/23/24 *Reason for visit:: Acute cholecystitis *History of present illness: Patient is a 38-year-old female who presented to the emergency department in the early evening of 05/23/2024 with acute onset of significant cramping epigastric and right upper quadrant pain occurring postprandially. Laboratory evaluation revealed normal white blood cell count. Chemistries and liver function tests are normal. She underwent CT scan which revealed equivocal gallbladder wall thickening and gallstone. She was admitted for inpatient management and surgical consultation. She did have an episode of vomiting about 1 week prior but no significant abdominal pain. She has ongoing tenderness. [facility] Disclaimer: The information contained in this section may have been updated after the patient was seen, as this information can be updated by other users. Medical History (Updated 05/24/24 @ 00:05 by Lian Weir APRN) Hypothyroid Surgical History History of tympanostomy tube placement History of tubal ligation History of tonsillectomy History of section History of appendectomy Family History Other No significant family history Social History (Updated 05/23/24 @ 23:08 by Jahaira Jain RN) Smoking Status: Never smoker alcohol intake: never substance use type: denies use current occupational status: employed Travel in the last 8 weeks: None household members: family housing: house current occupation: teacher current occupational exposures/hazards: No Review of Systems *Neurologic Neurologic: Reports system reviewed and no additional complaints, except as documented Meds Home Medications and Allergies Home Medications Medication Instructions Recorded Confirmed Type levothyroxine 88 mcg tablet 88 mcg PO DAILY THYROID 12/11/21 05/23/24 History New Prescriptions to Start Prescriptions: Allergies Allergy/AdvReac Type Severity Reaction Status Date / Time diphenhydramine Allergy Unknown Verified 04/22/24 13:31 [From BENADRYL] Exam (Inpt) Vital signs and Labs for Last 24 Hours: Temp Pulse Resp BP Pulse Ox O2 Del Method 97.9 F 66 16 109/87 L 96 Room Air 05/24/24 04:00 05/24/24 04:00 05/24/24 04:00 05/24/24 04:00 05/24/24 04:00 05/24/24 06:46 Laboratory Results - last 24 hr 05/23/24 18:57: Urine Color Yellow, Urine Appearance Clear, Urine pH 6.0, Ur Specific [place] >= 1.030, Urine Protein Negative, Urine Glucose (UA) Negative, Urine Ketones Negative, Urine Blood 1+, Urine Nitrate Negative, Urine Bilirubin Negative, Urine Urobilinogen 0.2, Ur Leukocyte Esterase 1+ A, Urine RBC Occasional, Urine WBC 5-10, Ur Squamous Epith Cells 10-20, Urine Bacteria 1+ 05/23/24 19:08: WBC 10.2, RBC 4.74, Hgb 13.3, Hct 42.1, MCV 88.9, MCH 28.0, MCHC 31.5 L, RDW 14.3, Plt Count 488 H, MPV 7.3 L, Neut % (Auto) 69.9, Lymph % (Auto) 22.9, [place] % (Auto) 4.8, Eos % (Auto) 1.4, Baso % (Auto) 1.0, Neut # (Auto) 7.1, Lymph # (Auto) 2.3, [place] # (Auto) 0.5, Eos # (Auto) 0.1, Baso # (Auto) 0.1, Sodium 142, Potassium 3.7, Chloride 108 H, Carbon Dioxide 27, Anion Gap 10.7, BUN 12, Creatinine 0.70, Estimated Creat Clear 127, Estimated GFR 93, Est GFR ( Amer) 113, Glucose 108 H, Calcium 9.5, Total Bilirubin 0.3, AST 48 H, ALT 69, Alkaline Phosphatase 68, Total Protein 8.1, Albumin 4.7, Globulin 3.4 H, Albumin/Globulin Ratio 1.4, Lipase 100, Serum HCG, Qual Negative 05/24/24 06:20: WBC 8.6, RBC 4.20, Hgb 12.0 L, Hct 36.7 L, MCV 87.4, MCH 28.5, MCHC 32.6, RDW 14.5, Plt Count 402, MPV 7.8, Neut % (Auto) 71.4, Lymph % (Auto) 22.0, [place] % (Auto) 4.5, Eos % (Auto) 1.4, Baso % (Auto) 0.8, Neut # (Auto) 6.2, Lymph # (Auto) 1.9, [place] # (Auto) 0.4, Eos # (Auto) 0.1, Baso # (Auto) 0.1, PT 11.0, INR 0.98, Sodium 137, Potassium 3.6, Chloride 109 H, Carbon Dioxide 26, Anion Gap 5.6, BUN 8 D, Creatinine 0.60, Estimated Creat Clear 151, Estimated GFR 111, Est GFR ( Amer) 135, Glucose 92, Calcium 8.6, Magnesium 1.9, Total Bilirubin 0.4, AST 31 D, ALT 48 D, Alkaline Phosphatase 52, Total Protein 6.1 L, Albumin 3.4 L D, Globulin 2.7, Albumin/Globulin Ratio 1.3 I & O for Labs for Last 24 Hours: Intake & Output 05/21/24 05/22/24 05/23/24 05/24/24 11:59 11:59 11:59 11:59 Output Total 0 / 0 Balance 0 / 0 Weight 167 lb 9.597 oz Constitutional: no acute distress Head: Present normocephalic Respiratory: Present CTA bilaterally Cardiac: Present Reg Rate and Rhythm GI: Present soft and tenderness Rectal (female): Present deferred (female): Present deferred Results Labs 05/24/24 06:20 05/24/24 06:20 Labs: Laboratory Results - last 24 hr 05/23/24 18:57: Urine Color Yellow, Urine Appearance Clear, Urine pH 6.0, Ur Specific [place] >= 1.030, Urine Protein Negative, Urine Glucose (UA) Negative, Urine Ketones Negative, Urine Blood 1+, Urine Nitrate Negative, Urine Bilirubin Negative, Urine Urobilinogen 0.2, Ur Leukocyte Esterase 1+ A, Urine RBC Occasional, Urine WBC 5-10, Ur Squamous Epith Cells 10-20, Urine Bacteria 1+ 05/23/24 19:08: WBC 10.2, RBC 4.74, Hgb 13.3, Hct 42.1, MCV 88.9, MCH 28.0, MCHC 31.5 L, RDW 14.3, Plt Count 488 H, MPV 7.3 L, Neut % (Auto) 69.9, Lymph % (Auto) 22.9, [place] % (Auto) 4.8, Eos % (Auto) 1.4, Baso % (Auto) 1.0, Neut # (Auto) 7.1, Lymph # (Auto) 2.3, [place] # (Auto) 0.5, Eos # (Auto) 0.1, Baso # (Auto) 0.1, Sodium 142, Potassium 3.7, Chloride 108 H, Carbon Dioxide 27, Anion Gap 10.7, BUN 12, Creatinine 0.70, Estimated Creat Clear 127, Estimated GFR 93, Est GFR ( Amer) 113, Glucose 108 H, Calcium 9.5, Total Bilirubin 0.3, AST 48 H, ALT 69, Alkaline Phosphatase 68, Total Protein 8.1, Albumin 4.7, Globulin 3.4 H, Albumin/Globulin Ratio 1.4, Lipase 100, Serum HCG, Qual Negative 05/24/24 06:20: WBC 8.6, RBC 4.20, Hgb 12.0 L, Hct 36.7 L, MCV 87.4, MCH 28.5, MCHC 32.6, RDW 14.5, Plt Count 402, MPV 7.8, Neut % (Auto) 71.4, Lymph % (Auto) 22.0, [place] % (Auto) 4.5, Eos % (Auto) 1.4, Baso % (Auto) 0.8, Neut # (Auto) 6.2, Lymph # (Auto) 1.9, [place] # (Auto) 0.4, Eos # (Auto) 0.1, Baso # (Auto) 0.1, PT 11.0, INR 0.98, Sodium 137, Potassium 3.6, Chloride 109 H, Carbon Dioxide 26, Anion Gap 5.6, BUN 8 D, Creatinine 0.60, Estimated Creat Clear 151, Estimated GFR 111, Est GFR ( Amer) 135, Glucose 92, Calcium 8.6, Magnesium 1.9, Total Bilirubin 0.4, AST 31 D, ALT 48 D, Alkaline Phosphatase 52, Total Protein 6.1 L, Albumin 3.4 L D, Globulin 2.7, Albumin/Globulin Ratio 1.3 Assessment and Plan *Assessment and plan (1) Acute cholecystitis: Status: Acute Category: Medical Code(s): K81.0 - Acute cholecystitis Plan Patient's clinical scenario and laboratory findings are consistent with at least biliary colic with acute gallbladder attack. However, she has appreciable tenderness in the right upper and right lower quadrant ongoing consistent with clinical cholecystitis. Plan at this time will be for continued inpatient management with IV antibiotics and IV fluids. I will give her a clear liquid diet today and plan for n.p.o. after midnight with ultrasound tomorrow morning and probable cholecystectomy.
[2024-05-24] MEDS: LACTATED RINGERS 1000ML 1,000 ML 100 ML IV (08:43)
--- NOTE | 2024-05-24 08:47 | HMH.PHAINT1 ---
Pharmacy Intervention Comments: MEDICATION RECONCILIATION COMPLETED ON PATIENT USING EXTERNAL FILL HISTORY FROM PHARMACY. -VIVIAN ZAPATA, BECKAD
[2024-05-24] MEDS: HYDROCODONE/APAP 5/325 MG TABLET 1 TAB PO (08:51)
[2024-05-24 12:00] VITALS: BP 105/66; PULSE 68; RESP 16; TEMP 36.6; O2SAT 96
--- NOTE | 2024-05-24 14:18 | PC.NURSE ---
pt has complained of 5/10 pain from a headache since the AM, treated per MAR along with non-pharmacological pain relief measures. Upon re-assessment, her headache was unrelieved, notified MD and requested additional pain relief measures. Patient was able to tolerate a clear liquid diet for lunch, and has had no complaints of abdominal pain or nausea so far. Pt is ambulatory, VSS, A&Ox4, bed is in lowest position and call light is in reach.
[2024-05-24] MEDS: OXYCODONE 5MG IMMEDIATE RELEASE TABLET 5 MG PO (15:20)
[2024-05-24] MEDS: ONDANSETRON 4MG/2ML VIAL 4 MG IV (15:26)
[2024-05-24 16:00] VITALS: BP 120/78; PULSE 57; RESP 16; TEMP 37; O2SAT 98
--- NOTE | 2024-05-24 16:22 | PC.NURSE ---
pt had episode of nausea around 1545 that was relieved with zofran.
[2024-05-24] MEDS: PROCHLORPERAZINE 10MG/2ML VIAL 5 MG IV (19:40)
[2024-05-24 20:00] VITALS: BP 125/76; PULSE 66; RESP 16; TEMP 36.8; O2SAT 98
[2024-05-24] MEDS: CEFTRIAXONE SODIUM 1 GM in 0.9 % SODIUM CHLORIDE 50 ML IV (20:00)
[2024-05-24] MEDS: LEVOTHYROXINE 88MCG (0.088MG) TAB 88 MCG PO (20:00)
[2024-05-25] VITALS (16 sets, daily range): BP systolic 91–124; BP diastolic 53–77; PULSE 61–87; RESP 13–18; TEMP 36.4–43; O2SAT 94–98; BMI 29.7
--- NOTE | 2024-05-25 | US_ITS ---
FINAL REPORT CLINICAL HISTORY: .stones COMPARISON: CT dated 05/23/2024 FINDINGS: Sonographic images of the right upper quadrant were obtained. The pancreas is partially obscured.The liver has an unremarkable appearance. A gallstone and probable sludge are present in the gallbladder. There is no evidence of biliary ductal dilatation.The common duct measures 4mm. Limited images of the right kidney are unremarkable. IMPRESSION: A gallstone and probable sludge are present in the gallbladder. No biliary ductal dilatation is present. Reviewed, Interpreted and Dictated by Polo Zamora III, MD Transcribed by Poly Vickers Authenticated and [facility]
--- NOTE | 2024-05-25 05:26 | PC.NURSE ---
Patient alert and oriented x4 throughout shift. Tolerating room air well. Patient had complaints of nausea at the beginning of the shift, treated per MAR. No acute changes overnight. Patient rested well and took a shower prior to going to sleep for the night. Call light within reach.
[2024-05-25] MEDS: METRONIDAZ/SOD CHL 500 MG/100 ML PIGGYBACK 100 MG IV ×2 (05:46→23:03)
--- NOTE | 2024-05-25 08:21 | EXP.PN ---
Subjective *Date: 05/25/24 *Time: 14:10 Interval history: The patient is seen and examined today at bedside. I am accompanied by her nurse Gillian. Nursing staff report that she remains afebrile with stable vital signs and saturating appropriately on room air. Patient reports adequate pain control and is currently n.p.o. for expected cholecystectomy this afternoon. Exam Data for Last 24 hours Vital signs and Labs for Last 24 Hours: Temp Pulse Resp BP Pulse Ox O2 Del Method 97.9 F 69 16 91/53 L 95 Room Air 05/25/24 04:00 05/25/24 04:00 05/25/24 04:00 05/25/24 04:00 05/25/24 04:00 05/25/24 06:50 I & O for Last 24 hours: Intake & Output 05/22/24 05/23/24 05/24/24 05/25/24 23:59 23:59 23:59 23:59 Intake Total 1110 / 1110 99 / 99 Output Total 0 / 0 0 / 0 Balance 1110 / 1110 99 / 99 Weight 76.022 kg 76.022 kg 76.022 kg Constitutional Constitutional: no acute distress *Routine HEENT Exam Head: Present normocephalic ENT: Present mucous membranes moist *Routine Neck Exam Neck: Present supple *Routine Respiratory Exam Respiratory: Present normal respiratory effort and symmetric chest movement *Routine Cardiovascular Exam Cardiovascular: Present RRR; Absent murmur *Routine Abdominal Exam Abdominal: Present soft, normoactive bowel sounds and tenderness *Routine Extremities Exam Extremities: Present full ROM; Absent edema *Routine Skin Exam Skin: Present intact; Absent jaundice *Routine Neurological Exam Neurological: Present alert, oriented X3, moving all extremities, vision grossly intact, hearing grossly intact and normal speech Routine Psychiatric Exam Psychiatric: Present normal affect, normal thought process, cooperative, good insight and good judgment Assessment and Plan *Assessment and plan (1) Acute cholecystitis: Status: Acute Category: Medical Code(s): K81.0 - Acute cholecystitis (2) Hypothyroid: Status: Acute Qualifiers: Hypothyroidism type: unspecified Qualified Code(s): E03.9 - Hypothyroidism, unspecified Category: Medical Code(s): E03.9 - Hypothyroidism, unspecified Plan This is a 38-year-old female being admitted for acute cholecystitis. Acute cholecystitis General surgery consult CT abdomen and pelvis with acute cholecystitis RUQ abdominal ultrasound pending N.p.o. with plans for surgical intervention this afternoon IV Rocephin and metronidazole Parenterally administered controlled substance for comfort care IV antiemetic therapy Gentle IV fluid resuscitation Trending labs and inflammatory markers Hypothyroid Levothyroxine replacement therapy DVT prophylaxis: SCDs CODE STATUS: Full code Surrogate decision maker: Chepe [phone] The patient is hospitalized day 2 with above diagnoses. We appreciate data governance consultant evaluation, surgical recommendations and postoperative care recommendations. Case management is assisting with discharge planning. Barriers to discharge currently include surgical intervention and postprocedural care. Expected date of discharge cannot be determined at present time but expected 05/26/2024 pending postoperative course.
--- NOTE | 2024-05-25 13:03 | EXP.ANES.CKL ---
[facility] Disclaimer: The information contained in this section may have been updated after the patient was seen, as this information can be updated by other users. Medical History (Updated 05/24/24 @ 00:05 by Lian Weir APRN) Hypothyroid Surgical History History of tympanostomy tube placement History of tubal ligation History of tonsillectomy History of section History of appendectomy Family History Other No significant family history Social History (Updated 05/23/24 @ 23:08 by Jahaira Jain RN) Smoking Status: Never smoker alcohol intake: never substance use type: denies use current occupational status: employed Travel in the last 8 weeks: None household members: family housing: house current occupation: teacher current occupational exposures/hazards: No [facility] Anesthesia Checklist Patient Identification Patient Identification: Arm Band Structural Data Admitted From: Inpatient Planned Operative Procedure/s: Laparoscopic Cholecystectomy Consent for Planned Operative Procedure(s) Verified: Yes Verified Documents: Surgical Consent and History and Physical NPO Status Verified Time NPO: 00:00 Additional verifications Anesthesia Reactions: Yes (PONV) Hx Blood Transfusions: No Blood Transfusion Reaction: No Airway Assessment Mallampati Score:: Class II C-Spine Mobility Assessed: Yes TMJ Mobility Assessed: Yes Dentition: Good Dentition Neurological Assessment Level of Consciousness: Awake, Alert and Appropriate Anesthesia Plan Anesthesia Risk discussed: Yes Anesthesia Plan: Verified ASA Class: II Anesthesia Type: General
[2024-05-25] MEDS: ROPIVACAINE 0.5% 30ML VIAL 150 MG (15:02)
[2024-05-25] MEDS: LIDOCAINE 1% 20ML MDV 20 ML (15:02)
[2024-05-25] MEDS: CEFAZOLIN SODIUM 2 GM in 0.9 % SODIUM CHLORIDE 100 ML IV (15:03)
--- NOTE | 2024-05-25 15:36 | P.OP_ITS ---
Date of procedure: 05/25/24 Pre-op Diagnosis:: Cholecystitis Post-op Diagnosis:: Same Procedure performed:: Laparoscopic cholecystectomy Surgeon:: Polo Soliz MD OFFICE SUPPORT CLERK:: Lashell Browne Anesthesia: EPI Estimated blood loss (mL): 25 Clinical Note:: Patient is a 38-year-old female who presented to the emergency department in the early evening of 05/23/2024 with acute onset of significant cramping epigastric and right upper quadrant pain occurring postprandially. Laboratory evaluation revealed normal white blood cell count. Chemistries and liver function tests are normal. She underwent CT scan which revealed equivocal gallbladder wall thickening and gallstone. She was admitted for inpatient management and surgical consultation. She did have an episode of vomiting about 1 week prior but no significant abdominal pain. She has ongoing tenderness. She was treated for clinical acute cholecystitis. She was given antibiotics. She underwent definitive gallbladder ultrasound which revealed gallstones and probable sludge in the gallbladder. No ductal dilatation. Plan was made to proceed with cholecystectomy. . Operative findings:: She had a somewhat distended edematous gallbladder. Operative note:: Consent was obtained and patient was taken the operating room. She was given preoperative intravenous antibiotics. In the operating room she was placed in a supine position. General anesthesia was induced via endotracheal tube. Abdomen was prepped and draped in a standard surgical fashion. Infraumbilical skin incision was made in her previous laparoscopy scar. While performing abdominal wall lift Veress needle was inserted. CO2 pneumoperitoneum was achieved to 15 mmHg. 11 mm optical trocar was inserted at the umbilicus. Intraperitoneal con tents were visualized. She was positioned in reverse Trendelenburg left side down. A couple 5 mm trocars were inserted in the right upper abdomen. 11 mm trocar was inserted in the epigastrium. Gallbladder was grasped retracted anteriorly and superiorly over the dome of the liver. Infundibulum of the gallbladder was retracted anterior laterally. There were some minimal fatty adhesions to the gallbladder neck which were taken down using blunt dissection. Dissection was carried out exposing the cystic duct and cystic artery. Some limited use of RUSLAN ultrasonic harmonic leia were used for exposure. Cystic duct and cystic artery were identified in the critical view of safety. Cystic duct was isolated and multiply clipped and sharply divided. Cystic artery was carefully coagulated with RUSLAN ultrasonic harmonic leia and divided. Gallbladder was dissected free from the liver in a retrograde fashion using RUSLAN ultrasonic harmonic leia. There was unavoidable minimal rent in the g allbladder near its fundus without appreciable spillage of bile. This was temporarily closed with a Hemoclip. Gallbladder was then removed from the liver in its entirety. Gallbladder was placed within an Endo Catch retrieval device and removed from the peritoneal cavity via the umbilical trocar site. Gallbladder fossa and perihepatic space were then aspirated and irrigated until clear. Trocars were removed as CO2 pneumoperitoneum was evacuated. Fascia at the umbilicus was closed with a couple of 0 Vicryl sutures. Local anesthetic was infiltrated. Skin incisions were closed with 4-0 Monocryl in a subcuticular fashion. Dermabond and dressings were applied. . Condition: stable Disposition: PACU Complications:: None immediately apparent
--- NOTE | 2024-05-25 15:45 | EXP.ANES.I ---
[facility] Anesthesia Record Part I Anesthesia Record I Intake, IV Amount: 1,000 Hydration: Adequate Estimated blood loss (mL): 25 Urine output (mL): 0 Blood Pressure: 95/56 SaO2: 95 Pulse Rate: 76 Airway Patency: Patent Respiratory Rate: 13 Temperature: 97.6 F Patient is:: Drowsy Stable to PACU at:: 15:43
[2024-05-25] MEDS: PROMETHAZINE HCL 25MG/ML 1ML VIAL 6.25 MG IV (16:43)
[2024-05-25] MEDS: HYDROMORPHONE 2MG/ML SYRINGE 1 MG IV (18:30)
[2024-05-25] MEDS: CEFTRIAXONE SODIUM 1 GM in 0.9 % SODIUM CHLORIDE 50 ML IV (22:30)
[2024-05-25] MEDS: LEVOTHYROXINE 88MCG (0.088MG) TAB 88 MCG PO (22:30)
[2024-05-26] VITALS: BP 108/64; PULSE 67; RESP 16; TEMP 37; O2SAT 95
[2024-05-26 04:00] VITALS: BP 111/54; PULSE 65; RESP 18; TEMP 36.9; O2SAT 94; BMI 31.7
--- NOTE | 2024-05-26 04:12 | PC.NURSE ---
Patient alert and oriented x4 through shift. Tolerating room air well. Patient has slept most of the night. She stated to me earlier she is feeling better after cholecystectomy on 05/25/24. Tolerating ambulation independently to/from restroom with no complaints. No complaints of nausea, vomiting or pain so far this shift. VSS. Call light within reach.
[2024-05-26] MEDS: METRONIDAZ/SOD CHL 500 MG/100 ML PIGGYBACK 100 MG IV (05:39)
[2024-05-26 08:00] VITALS: BP 116/64; PULSE 80; RESP 18; TEMP 36.4; O2SAT 96
--- NOTE | 2024-05-26 08:49 | EXP.ANES.II ---
[facility] Anesthesia Record Part II Anesthesia Record Part II Discharge Time: 16:13 Destination: Surgical Day Care (OP Surgery) PACU nurse assessment reviewed?: Yes Patient Condition:: Good Anesthesia Complications:: None Swallowing reflex intact?: Yes Airway Patency: Patent Cyanosis?: No Blood Pressure: 104/67 SaO2: 97 Respiratory Rate: 18 Pulse Rate: 79 Temperature: 97.6 F Mental Status: Alert & Oriented Pain level:: 0 Nausea and/or vomitting:: Nauseated Intake, IV Amount: 0 Hydration: Adequate
[2024-05-26 08:50] VITALS: BP 104/67; PULSE 79; RESP 18; TEMP 36.4; O2SAT 97
--- NOTE | 2024-05-26 10:11 | EXP.SURG.PN ---
Subjective Narrative: Patient did well overnight after surgery. No complaints. Exam Data for Last 24 hours Vital signs and Labs for Last 24 Hours: Temp Pulse Resp BP Pulse Ox O2 Del Method O2 Flow Rate 98.4 F 65 18 111/54 L 94 L Room Air 2 05/26/24 04:00 05/26/24 04:00 05/26/24 08:50 05/26/24 04:00 05/26/24 04:00 05/26/24 09:44 05/25/24 15:53 I & O for Last 24 hours: Intake & Output 05/23/24 05/24/24 05/25/24 05/26/24 11:59 11:59 11:59 11:59 Intake Total 1209 / 1209 1760 / 1760 Output Total 0 / 0 0 / 0 0 / 0 Balance 0 / 0 1209 / 1209 1760 / 1760 Weight 167 lb 9.597 oz 167 lb 9.597 oz 179 lb 4.8 oz Microbiology Reports for the Last 24 Hours: Microbiology 05/23/24 18:57 Urine,Clean Catch Urine Culture - Final Multiple organisms, suggests contamination. *Routine Abdominal Exam Abdominal: Present soft Comments: Dressing is dry and intact Progress Note: A&P Assessment and plan (1) Acute cholecystitis: Status: Acute Assessment and plan: Discharge home today (2) Hypothyroid: Status: Acute
--- NOTE | 2024-05-26 11:00 | EXP.DC.SUM ---
General Admission date:: 05/23/24 Discharge date: 05/26/24 HPI HPI HPI: Patient is a 38-year-old female who presented to the emergency department in the early evening of 05/23/2024 with acute onset of significant cramping epigastric and right upper quadrant pain occurring postprandially. Laboratory evaluation revealed normal white blood cell count. Chemistries and liver function tests are normal. She underwent CT scan which revealed equivocal gallbladder wall thickening and gallstone. She was admitted for inpatient management and surgical consultation. She did have an episode of vomiting about 1 week prior but no significant abdominal pain. She has ongoing tenderness. Hospital Course Hospital Course Hospital Course: Patient presented to hospital with abdominal discomfort, and rapidly diagnosed with acute cholecystitis. Patient started on IV antibiotics and evaluated by surgery on hospitalization. Patient underwent uncomplicated laparoscopic cholecystectomy, then monitored overnight. Patient pain-free and able to tolerate adequate oral intake after surgical procedure. Patient subsequently discharged home on p.o. pain meds, p.o. antibiotics. Patient also advised to follow-up with PCP and general surgery after hospital disposition. Exam Data for Last 24 hours Vital signs and Labs for Last 24 Hours: Temp Pulse Resp BP Pulse Ox O2 Del Method O2 Flow Rate 97.6 F 80 18 116/64 96 Room Air 2 05/26/24 08:00 05/26/24 08:00 05/26/24 08:50 05/26/24 08:00 05/26/24 08:00 05/26/24 09:44 05/25/24 15:53 I & O for Last 24 hours: Intake & Output 05/23/24 05/24/24 05/25/24 05/26/24 23:59 23:59 23:59 23:59 Intake Total 1110 / 1110 1659 / 1759 710 / 710 Output Total 0 / 0 0 / 0 0 / 0 Balance 1110 / 1110 1659 / 1759 710 / 710 Weight 76.022 kg 76.022 kg 76.022 kg 81.329 kg Microbiology Reports for the Last 24 Hours: Microbiology 05/23/24 18:57 Urine,Clean Catch Urine Culture - Final Multiple organisms, suggests contamination. Constitutional Constitutional: no acute distress *Routine HEENT Exam Head: Present normocephalic Eye: Present EOMI and PERRL ENT: Present mucous membranes moist *Routine Neck Exam Neck: Present supple and full ROM *Routine Respiratory Exam Respiratory: Present CTA bilaterally *Routine Cardiovascular Exam Cardiovascular: Present RRR, Normal S1 and Normal S2 *Routine Abdominal Exam Abdominal: Present soft and normoactive bowel sounds Routine Back/Spine/Pelvis Exam Back/Spine: Present full ROM *Routine Skin Exam Skin: Present intact and normal turgor *Routine Neurological Exam Neurological: Present alert, oriented X3 and abnormal gait Results Additional Comments Additional comments: 05/25/24 U/S Jasen leach FINAL REPORT CLINICAL HISTORY: .stones COMPARISON: CT dated 05/23/2024 FINDINGS: Sonographic images of the right upper quadrant were obtained. The pancreas is partially obscured.The liver has an unremarkable appearance. A gallstone and probable sludge are present in the gallbladder. There is no evidence of biliary ductal dilatation.The common duct measures 4mm. Limited images of the right kidney are unremarkable. IMPRESSION: A gallstone and probable sludge are present in the gallbladder. No biliary ductal dilatation is present. Reviewed, Interpreted and Dictated by Polo Zamora III, MD Transcribed by Poly Vickers Authenticated and [facility] 05/23/24 Exam: CT Abdomen And Pelvis With Contrast Exam date and time: 05/23/2024 8:04 PM Age: 38 years old Clinical indication: Abdominal pain; Epigastric; Additional info: Ruq epigastric pain TECHNIQUE: Imaging protocol: Computed tomography of the abdomen and pelvis with contrast. Radiation optimization: All CT scans at this facility use at least one of these dose optimization techniques: automated exposure control; mA and/or kV adjustment per patient size (includes targeted exams where dose is matched to clinical indication); or iterative reconstruction. Contrast material: ISOVUE; Contrast volume: 75 ml; Contrast route: IV; COMPARISON: CT ABDOMEN PELVIS WO CON 11/12/2019 11:42 AM FINDINGS: Lungs: Clear basilar lung parenchyma. Pleural spaces: No pleural fluid or pneumothorax. Heart: Normal heart size. Diaphragm: Small sliding hiatal hernia. Liver: 1.9 cm enhancing nodule at the dome the liver demonstrates morphology most compelling for hemangioma. Gallbladder and biliary ducts: There is cholelithiasis with equivocal gallbladder wall thickening. No biliary tree dilation or high-density common duct stones. Pancreas: Normal. No ductal dilation. Spleen: Normal. No splenomegaly. Adrenal glands: Normal configuration. Kidneys and ureters: Kidneys enhance symmetrically and demonstrate no evidence of mass, calculus, obstruction, or inflammation. Stomach and bowel: Postprandial stomach. Normal caliber small bowel. Distal colonic diverticulosis without evidence of acute diverticulitis. Appendix: No evidence of appendicitis. Intraperitoneal space: No free air. No significant fluid collection. Vasculature: Normal caliber arterial structures. Lymph nodes: No enlarged lymph nodes. Urinary bladder: Unremarkable as visualized. Reproductive: There is generalized uterine enlargement measuring 10.4 x 5.1 x 7.8 cm for a volume of approximately 215 cc. No adnexal mass or inflammation. Bones/joints: No fracture or destructive lesion. Soft tissues: Tiny fat containing umbilical hernia. Fat containing right indirect inguinal hernia. IMPRESSION: 1. There is gallbladder wall thickening and cholelithiasis which may reflect acute cholecystitis. Ultrasound may be helpful if clinical scenario is unresolved. No biliary tree dilation. 2. There is generalized enlargement of the uterus without discrete mass potentially reflecting adenomyosis. Correlate with any symptoms of menorrhagia. : Diagnosis Discharge Diagnosis (1) Acute cholecystitis: Status: Acute Code(s): K81.0 - Acute cholecystitis (2) Hypothyroid: Status: Acute Code(s): E03.9 - Hypothyroidism, unspecified Qualifiers: Hypothyroidism type: unspecified Qualified Code(s): E03.9 - Hypothyroidism, unspecified Meds Home Medications and Allergies Home Medications Medication Instructions Recorded Confirmed Type levothyroxine 88 mcg tablet 88 mcg PO HS 12/11/21 05/24/24 History hydrocodone 5 mg-acetaminophen 325 1 - 2 tab PO Q6H PRN Pain #17 tabs 05/25/24 Rx mg tablet ciprofloxacin HCl 500 mg tablet 500 mg PO BID #14 tabs 05/26/24 Rx (Cipro) metronidazole 500 mg tablet 500 mg PO TID #21 tabs 07/09/24 Rx New Prescriptions to Start Prescriptions: ciprofloxacin HCl [Cipro] Roy,Coy hydrocodone-acetaminophen Polo Soliz metronidazole Roy,Coy Allergies Allergy/AdvReac Type Severity Reaction Status Date / Time diphenhydramine Allergy Unknown Verified 04/22/24 13:31 [From [facility]] Discharge Plan Disposition Patient Disposition: Home, Self-Care Condition: Fair Follow up Plan Follow up with: Polo Soliz MD [Staff Physician] - 06/11/24 10:15 am Jose Krueger MD [Primary Care Provider] - 1 week (Status posthospitalization for acute cholecystitis. Discharged on p.o. antibiotics and with surgery follow-up.) Prescriptions/Medication Reconciliation: New hydrocodone-acetaminophen 5-325 mg Tablet 1 - 2 tab PO Q6H PRN (Reason: Pain) Qty: 17 0RF ciprofloxacin HCl [Cipro] 500 mg tablet 500 mg PO BID Qty: 14 0RF metronidazole 500 mg tablet 500 mg PO TID Qty: 21 0RF Continued levothyroxine 88 mcg tablet 88 mcg PO HS Problem Reconciliation Problems Reviewed?: Yes Patient Discharge Instructions ACTIVITY: No heavy lifting DIET: advance to your usual diet Patient Instructions: DI for Surgical Site Infection, DI for Cholecystitis, DI for Laparoscopic Cholecystectomy Print Language: [place] Providers Primary Care Provider: Jose Krueger Admit Provider: Dane Crystal Attending Provider: Dane Crystal
--- NOTE | 2024-05-27 13:23 | CARE MANAGER ---
Called and spoke with patient regarding recent discharge. Patient stated that she is doing well, has started new medication and was aware of scheduled f/u appts. Patient voiced no concerns at time of call.
== END 2024-05-26 12:11 | disposition home or self-care (01) ==
LOC: ER 22:19 → 2ND 22:53
PROVIDERS: Nurse Practitioner Acute Care; Surgery; Admitting Provider Internal Medicine Adolescent Medicine; Emergency Provider Emergency Medicine; PCP Internal Medicine Adolescent Medicine; Visit Provider Internal Medicine Adolescent Medicine
PROC: 0FT44ZZ Resection of Gallbladder, Percutaneous Endoscopic Approach (ICD-10-PCS; CPT 47562; principal; 2024-05-25 13:30)
DX: K81.0 Acute cholecystitis (principal); E03.9 Hypothyroidism, unspecified
CPT/HCPCS: 47562; 74177; 76705; 80053; 81001; 83690; 83735; 84703; 85025; 85610; 87086; 96374; 99221; 99285; J3490; G0378; J0131; J0690; J0696; J1170; J1885; J2250; J2270; J2405; J2550; J3010; J7120; Q9967

== ENCOUNTER 2024-10-14 09:52 | Outpatient (CLI) | payer BC, SELFPAY ==
--- NOTE | 2024-10-14 | US_ITS ---
PROCEDURE INFORMATION: Exam: US Left Breast, Complete US Right Breast, Complete MG Bilateral Screening 3D Mammography Exam date and time: 10/14/2024 10:41 AM Age: 39 years old Clinical indication: Screening examination; Family history of breast cancer. TECHNIQUE: Imaging protocol: Complete ultrasound of all four quadrants of the left breast and the retroareolar regions, including ultrasound of the axilla when performed. Complete ultrasound of all four quadrants of the right breast and the retroareolar regions, including ultrasound of the axilla when performed. Bilateral Screening tomosynthesis and 2D mammography including computer-aided detection (CAD) when performed. COMPARISON: MG MM DIG SCREENING MAMM BI W/CAD 10/14/2024 9:46 AM FINDINGS: MAMMOGRAPHY: Breast composition: The breasts are heterogeneously dense, which may obscure small masses. Mass: None. Architectural distortion: None. Calcifications: None. Asymmetric density: None. Skin thickening: None. Axillary adenopathy: None. ULTRASOUND: Right solid masses: None. Right cystic masses: Complicated cyst in the right breast 6 o'clock axis, 3 cm from the nipple measuring 1.1 x 0.9 x 0.5 cm. Complicated cyst in the right breast 11 o'clock axis, 4 cm from the nipple measuring 0.3 x 0.4 x 0.3 cm. Complicated cyst in the right breast 11 o'clock axis, 3 cm from the nipple measuring 0.5 x 0.6 x 0.3 cm. Right architectural distortion: None. Right acoustical shadowing: None. Right skin thickening: None. Right axillary adenopathy: None. Left solid masses: None. Left cystic masses: Complicated cyst in the left breast 12 o'clock axis, 3 cm from the nipple measuring 0.6 x 0.4 x 0.2 cm. Complicated cyst in the left breast retroareolar aspect, 9 o'clock axis measuring 0.5 x 0.4 x 0.3 cm. No shadowing or distortion. Left architectural distortion: None. Left acoustical shadowing: None. Left skin thickening: None. Left axillary adenopathy: None. IMPRESSION: 1. Probably benign complicated cysts in the left breast at the 12 o'clock axis, 3 cm from the nipple and in the retroareolar region, 9 o'clock axis. Ultrasound follow-up of the left breast in 6 months is recommended for close surveillance. 2. Probably benign complicated cysts in the right breast 6 o'clock axis, and 11 o'clock axis as above, similar to the left. Ultrasound follow-up of the right breast in 6 months is also recommended for close surveillance. ASSESSMENT: Screening mammogram BIRADS: Category 1: Negative. Overall BIRADS: Category 3: Probably benign.
== END 2024-10-14 23:59 | disposition home or self-care (01) ==
LOC: RAD 09:52
PROVIDERS: PCP Internal Medicine Adolescent Medicine; Visit Provider Internal Medicine Adolescent Medicine
DX: Z12.31 Encounter for screening mammogram for malignant neoplasm of breast (principal); Z80.3 Family history of malignant neoplasm of breast
CPT/HCPCS: 76641; 77063; 77067

== ENCOUNTER 2025-03-26 13:47 | Outpatient (CLI) | payer BC, SELFPAY ==
--- NOTE | 2025-03-26 13:49 | US_ITS ---
PROCEDURE INFORMATION: Exam: US Left Breast, Complete US Right Breast, Complete Exam date and time: 03/26/2025 1:40 PM Age: 39 years old Clinical indication: 6 month follow up probable cystic change TECHNIQUE: Imaging protocol: Complete ultrasound of all four quadrants of the left breast and the retroareolar regions, including ultrasound of the axilla when performed. Complete ultrasound of all four quadrants of the right breast and the retroareolar regions, including ultrasound of the axilla when performed. COMPARISON: US BREAST bilateral COMPLETE 10/14/2024 10:41 AM FINDINGS: ULTRASOUND: Breast ultrasound findings: Sonographic images of both breasts including the retroareolar regions, all 4 quadrants and the axilla do not demonstrate any solid masses. Benign 0.7 cm cyst in the left 12 o'clock axis 3 cm from the nipple unstable 1.0 cm cyst in the right 6 o'clock axis 3 cm from the nipple previously noted additional cystic change in the right breast has resolved No architectural distortion or acoustical shadowing. No skin thickening or axillary adenopathy. IMPRESSION: No sonographic evidence of malignancy. Benign cystic change bilaterally. Annual mammographic screening is recommended in September 2025 unless otherwise clinically indicated. ASSESSMENT: BI-RADS Category 2: Benign.
== END 2025-03-26 23:59 | disposition home or self-care (01) ==
LOC: RAD 13:47
PROVIDERS: PCP Internal Medicine Adolescent Medicine; Visit Provider Internal Medicine Adolescent Medicine
DX: N60.02 Solitary cyst of left breast (principal); N60.01 Solitary cyst of right breast
CPT/HCPCS: 76641

== ENCOUNTER 2025-06-24 15:45 | Outpatient (CLI) | payer BC, SELFPAY ==
--- NOTE | 2025-06-24 15:50 | US_ITS ---
FINAL REPORT TECHNIQUE: Sonographic images of the thyroid were obtained. CLINICAL HISTORY: POST SURGICAL HYPOTHYROIDISM COMPARISON: None FINDINGS: THYROID ULTRASOUND The right thyroid gland measures 4.5 x 1.3 x 1.4 cm. There is a 5 mm hypoechoic nodule in the posterior right lobe of the thyroid, TI-RADS 4. The left lobe is surgically absent. IMPRESSION: 5 mm TI-RADS 4 nodule right lobe of the thyroid. No follow-up required per TI-RADS criteria. Reviewed, Interpreted and Dictated by Kamari Tran MD Transcribed by Tresa Funes Authenticated and [facility]
== END 2025-06-24 23:59 | disposition home or self-care (01) ==
LOC: RAD 15:46
PROVIDERS: PCP Internal Medicine Adolescent Medicine; Visit Provider Nurse Practitioner Family
DX: E04.1 Nontoxic single thyroid nodule (principal)
CPT/HCPCS: 76536